=== PATIENT | female | born 1960 | race Caucasian/White ===

== ENCOUNTER → 2020-04-11 15:16 | Outpatient (CLI) | payer OTHER, SELFPAY ==
--- NOTE | ~2020-04-11 | XR_ITS ---
[id number] 04/11/2020 15:30 Indication: Radiculopathy Procedure: 5 views cervical spine Comparison: No prior studies for comparison. Findings: Vertebral body heights are maintained. No acute fracture or traumatic malalignment. There a re mild degenerative changes of multiple with mid cervical uncinate and facet joints. Lung apices are normal. Odontoid process within normal limits. No prevertebral soft tissue abnormality. Craniotomy d efect is partially visualized. Impression: 1: Mild cervical spondylosis Reviewed, dictated and finalized at location A. INAL OPERATIONS MANAGER Impression: 1: Mild cervical spondylosis
== END ==
PROVIDERS: PCP Physician Assistant; Visit Provider Physician Assistant
DX: M47.22 Other spondylosis with radiculopathy, cervical region (principal); R20.0 Anesthesia of skin; R20.2 Paresthesia of skin
CPT/HCPCS: 72040

== ENCOUNTER 2020-05-11 13:30 | Outpatient (RCR) | payer OTHER, SELFPAY ==
--- NOTE | 2020-04-20 14:56 | PTOPEVAL ---
PHYSICAL THERAPY EVALUATION AND PLAN OF CARE Thank you for referring Reva Leone to [facility].? The patient is scheduled to be seen for therapy? 1-2x/week for 3-5 weeks. Please review, sign, date and return this plan of care ALAINA. I agree with and certify that the following plan of care is medically necessary. Referring Physician Date Attending Provider: Donte Marvin PA-C Evaluation Outpatient Past Medical History Neurological History Hx Other Neurological Disorders Yes: angioma surgery Musculoskeletal History Hx Back Injury Yes: surgery on herniated discs Diagnosis right cervical radiculopathy Onset 4weeks Subjective Information Reports that 2-3 years ago she Query Text:As Reported By Patient/ had similar symptoms in her Family right shoulder. She reports an audible pop in her neck that is generally non-painful, but her greateset complaint is sypmtoms medial to right scapular border. It is not constant but it will hurt so bad and her will try to massage the spot and there is some relief. She has the pain in the shoulder blade region and sometimes it will radiate to shoulder and arm. When this started she describes a severe pain that even turned into numbness in the right arm. the last 5 days have been much better, but it is nothing like it was. She was prescribed prednisone pack that helped tremendously. Diagnostic Tests X-Rays For This Problem Yes: cervical OA Self Report Pain Assessment Right Shoulder(s) Reported Pain Level 3 Pain Description Aching,Numbness,Soreness Pain Frequency Acute,Continuous Lowest Pain Intensity 1 Greatest Pain Intensity 7 Other Pain Aggravating Factors nothing imparticular worsens symptoms; typically wakes with symptoms Interventions Used Interventions Used By Clinicians Exercise,Manual Therapy Techniques Pain Relief Interventions Used By Heat,Medication Patient Cervical and Lumbar ROM Cervical ROM Cervical Flexion (0-60) 40 Query Text:Active in Degrees Cervical Extension (0-70) 33 Quer
--- NOTE | 2020-06-08 15:50 | PTOPEVAL ---
PHYSICAL THERAPY DISCHARGE SUMMARY Thank you for referring Reva Leone to [facility].? Reva has been seen for the dx of cervical radiculopathy and has improved with goals partially met. Patient chooses to stop skilled PT at this time due to insurance/cost issues. Please review, sign, date and return this plan of care. I agree with and certify the following plan of care. Referring Physician Date Attending Provider: Donte Marvin PA-C *PT Outpatient Discharge Start: 04/20/20 12:32 Freq: Status: Active Protocol: Document 05/11/20 13:35 MLV (Rec: 05/11/20 14:25 MLV [id number]) Therapy Assessment Status Assessment Status Discharge Pain Assessment Timing of Pain Assessment Timing of Pain Assessment Assessment Pain Scale Pain Scale Used Numeric (1 - 10) Self Report Pain Assessment Right Shoulder(s) Reported Pain Level 4 Pain Description Aching Pain Frequency Intermittent Pain Score Pain Score 4: Self Report Interventions Used Interventions Used By Clinicians Education,Exercise,Heat, Traction Pain Relief Interventions Used By Exercise,Heat,Position Change Patient Cervical and Lumbar ROM Cervical ROM Cervical Flexion (0-60) 67 Query Text:Active in Degrees Cervical Extension (0-70) 48 Query Text:Active in Degrees Cervical Lateral Flexion Right (0-50) 43 Query Text:Active in Degrees Cervical Lateral Flexion Left (0-50) 32 Query Text:Active in Degrees Cervical Rotation Right (0-90) 75 Query Text:Active in Degrees Cervical Rotation Left (0-90) 65 Query Text:Active in Degrees Cervical ROM Comments AROM of cervical sidebend to the right creates increased symptoms to the right arm and hand Palpation Assessment Palpation Palpation right upper trap tightness improved but still present, affecting sidebend motion; muscle improves with STM PT Clinical Summary Reva has improved with a decrease in symptoms, decreased tightness, improved cervical motions and patient is I with HEP. The patient has a high cost copay and would like to hold therapy up to 2 weeks to see if she continues to improve without formal PT. PT agrees and plans to call the patient in 2 weeks to
== END 2020-07-04 09:31 | disposition home or self-care (01) ==
LOC: ANHPT 13:30
PROVIDERS: PCP Physician Assistant; Visit Provider Physician Assistant
DX: M54.12 Radiculopathy, cervical region (principal); R20.0 Anesthesia of skin; R20.2 Paresthesia of skin
CPT/HCPCS: 97012; 97014; 97110; 97140; 97162; G0283

== ENCOUNTER 2020-05-20 12:52 | Outpatient (CLI) | payer OTHER, SELFPAY | END 2020-05-20 12:53 | disposition home or self-care (01) | LOC: ANHAUDIO 12:54 | PROVIDERS: PCP Physician Assistant; Visit Provider Otolaryngology | DX: H90.3 Sensorineural hearing loss, bilateral (principal); H93.13 Tinnitus, bilateral; H81.10 Benign paroxysmal vertigo, unspecified ear | CPT/HCPCS: 92557; 92567 ==

== ENCOUNTER 2020-05-30 11:00 | Outpatient (RCR) | payer OTHER, SELFPAY ==
--- NOTE | 2020-05-23 11:55 | PTOPEVAL ---
PHYSICAL THERAPY EVALUATION AND PLAN OF CARE 05-23-20 Thank you for referring Reva Leone to [facility], for the diagnosis of vestibular rehab. Reva is scheduled to be seen for therapy? 1 x/week for 5 weeks. Please review, sign, date and return this plan of care ALAINA. I agree with and certify that the following plan of care is medically necessary. Referring Physician Date Attending Provider: Emile Leroy MD PT Outpatient Evaluation Document 05/23/20 10:30 JOSEPH (Rec: 05/23/20 11:55 JOSEPH [id number]) Therapy Assessment Status Assessment Status Assessment Status Evaluation Outpatient Past Medical History Past Medical History Source of Past Medical History Recalled from Previous Visit, Confirmed with Patient/Family Neurological History Hx Migraine Yes: at teenager, decreased, not had migraine for 10 yr; headache 1x/wk Hx Other Neurological Disorders Yes: meningioma removed 2009- benign Cardiovascular History Hx Cardiac Disorders No Significant History Respiratory History Hx Asthma Yes Hx Bronchitis Yes Hx Pneumonia Yes: past 4 springs- have pneumonia/bronchitis Gastrointestinal History Hx Gastrointestinal Disorders No Significant History Genitourinary History Hx Genitourinary Disorders No Significant History Musculoskeletal History Hx Back Injury Yes: surgery lumbar herniated discs x2 surgeries Hx Other Musculoskeletal Disorders Yes: R shoulder impingement/ cervical mild spondylosis xray Endocrine History Hx Endocrine Disorders No Significant History HEENT History Hx HEENT Disorders No Significant History Reproductive History Hx Section Yes Hx Hysterectomy Yes Evaluation Information Problem Diagnosis vertigo/ vestibular rehab Onset Jan 2020 Prior Level of Function Activity Level (Last 3 Months) 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 Home Meds Must
--- NOTE | 2020-06-02 15:46 | PCPTNOTE ---
PHYSICAL THERAPY DISCHARGE 06-02-20 Attending Provider: Emile Leroy MD Patient:Reva Leone Date of :1960 Mrs. Garcia has received the PT evaluation and one treatment session for the diagnosis of vertigo. She has been educated on a home exercise program and basic vestibular system information. Reva called today and is having issues with her insurance. She feels she is improving with her home exercises for eye tracking and stabilization, and does not want to come in for therapy any more due to cost. Discharge from PT services per pt request. The goals were not addressed. Thank you for referring Reva to [facility]. Please review, sign, date and return this discharge summary ALAINA. I have been updated about the patient's current status and I agree with discharge from the above service at this time. Referring Physician Date
== END 2020-06-03 07:43 | disposition home or self-care (01) ==
LOC: ANHPT 11:00
PROVIDERS: PCP Physician Assistant; Referring Provider Otolaryngology; Visit Provider Otolaryngology
DX: H90.3 Sensorineural hearing loss, bilateral (principal); H93.13 Tinnitus, bilateral; H81.10 Benign paroxysmal vertigo, unspecified ear
CPT/HCPCS: 97110; 97161

== ENCOUNTER 2020-06-21 15:46 | Outpatient (CLI) | payer OTHER, SELFPAY | END 2020-06-21 15:47 | disposition home or self-care (01) | LOC: ANHCOVIDVC 15:46 | PROVIDERS: PCP Physician Assistant | DX: Z23 Encounter for immunization (principal) | CPT/HCPCS: 0001A; 91300 ==

== ENCOUNTER 2020-07-12 16:00 | Outpatient (CLI) | payer OTHER, SELFPAY | END 2020-07-12 16:01 | disposition home or self-care (01) | LOC: ANHCOVIDVC 16:00 | PROVIDERS: PCP Physician Assistant | DX: Z23 Encounter for immunization (principal) | CPT/HCPCS: 0002A; 91300 ==

== ENCOUNTER → 2020-08-24 13:41 | Outpatient (CLI) | payer OTHER, SELFPAY ==
--- NOTE | ~2020-08-24 | MR_ITS ---
EXAMINATION: MR cervical spine wo con EXAM DATE: 08/24/2020 14:39 INDICATION: Neck pain, right shoulder pain. TECHNIQUE: Multi-sequential, multiplanar MR images of the cervical spine were obtained without contra st. Axial T2, axial T2 MERGE sequence. Sagittal T1, T2, T2 fat saturation images also obtained. Cor relation is made to cervical x-ray 04/11/2020. FINDINGS: There is mild to moderate loss of the disc height C4-C7. The vertebral bodies are aligned in the AP dimension. The spinal cord signal intensity and intrinsic morphology is normal. Cervicomedu llary junction is normal in appearance. There are no suspicious marrow signal abnormalities. Paraspin al soft tissue is unremarkable. Level by level evaluation: C2-C3: Disc does not extend beyond the endplate margin. Uncovertebral joint arthropathy: None. Facet joint arthropathy: Mild to moderate right, mild left. Neural foraminal stenosis: No stenosis. Central canal stenosis: No stenosis. C3-C4: There is a minimal diffuse disc bulge. Uncovertebral joint arthropathy: Mild bilateral. Facet joint arthropathy: Moderate bilateral. Neural foraminal stenosis: No stenosis. Central canal stenosis: No stenosis. C4-C5: There is a minimal diffuse disc bulge. Uncovertebral joint arthropathy: Mild to moderate bilateral. Facet joint arthropathy: Moderate bilateral. Neural foraminal stenosis: Mild right. Central canal stenosis: No stenosis. C5-C6: There is a mild diffuse disc bulge. Uncovertebral joint arthropathy: Moderate to severe left, moderate right. Facet joint arthropathy: Moderate bilateral. Neural foraminal stenosis: Mild bilateral. Central canal stenosis: Mild. C6-C7: There is a mild diffuse disc bulge. Uncovertebral joint arthropathy: Severe right, moderate left. Facet joint arthropathy: Mild bilateral. Neural foraminal stenosis: Moderate to severe right, mild to moderate left. Central canal stenosis: Mild. C7-T1: Disc does not extend beyond the endplate margin. Uncovertebral joint arthropathy: Mild left. Facet joint arthropathy: Minimal bilateral. Neural foraminal stenosis: No stenosis. Central canal stenosis: No stenosis. IMPRESSION: 1. C6-7 moderate to severe right neural foraminal stenosis. 2. Less spondylosis other levels. Reviewed, dictated and finalized at location B.
== END ==
PROVIDERS: PCP Physician Assistant; Visit Provider Nurse Practitioner Adult Health
DX: M47.23 Other spondylosis with radiculopathy, cervicothoracic region (principal); M48.03 Spinal stenosis, cervicothoracic region
CPT/HCPCS: 72141

== ENCOUNTER → 2021-07-06 10:41 | Outpatient (CLI) | payer OTHER, SELFPAY ==
--- NOTE | ~2021-07-06 | XR_ITS ---
XR chest 2V DATE: 07/06/2021 10:55 INDICATION: Asthma TECHNIQUE: 2 views COMPARISON: 11/02/2010 2 view chest FINDINGS: Normal heart size. No hilar or mediastinal enlargement. No pulmonary infiltrate or consolidation, pleural effusion or pulmonary vascular congestion or pneumo thorax. Included skeletal structures are unremarkable. IMPRESSION: No active cardiopulmonary disease Reviewed, dictated and finalized at location A.
== END ==
PROVIDERS: PCP Family Medicine; Visit Provider Physician Assistant Medical
DX: J45.909 Unspecified asthma, uncomplicated (principal)
CPT/HCPCS: 71046

== ENCOUNTER → 2022-10-03 14:55 | Outpatient (CLI) | payer OTHER, SELFPAY ==
--- NOTE | ~2022-10-03 | XR_ITS ---
Right foot Technique: AP, oblique, and lateral views were obtained. Clinical History: Injury Findings: No acute fracture or dislocation is seen. Osseous alignment is anatomic. Joint spaces are p reserved without erosive or degenerative change. There is focal soft tissue swelling of the dorsal as pect of the foot. Impression: No fracture or dislocation. Focal soft tissue swelling of the dorsal aspect of the foot. Reviewed, dictated and finalized at location M. Impression: No fracture or dislocation. Focal soft tissue swelling of the dorsal aspect of the foot.
== END ==
PROVIDERS: PCP Family Medicine; Visit Provider Physician Assistant Medical
DX: S99.921A Unspecified injury of right foot, initial encounter (principal); R22.41 Localized swelling, mass and lump, right lower limb; T14.90XA Injury, unspecified, initial encounter
CPT/HCPCS: 73630

== ENCOUNTER 2024-10-27 08:47 | Outpatient (CLI) | payer OTHER, SELFPAY ==
--- OUTSIDE RECORDS SUMMARY | 2009-12-15 19:00 | XMS_ITS | Continuity of Care Document ---
Author Organization [facility] Address [address] [facility] [address] [place] [address] Phone Care Team Providers Care Box Blank Machine Operator Name Role Phone Mejia OD, Korey Unavailable Unavailable Procedures Procedure Date Cntct Lens Hydrophil Bifocal Medical Tax Contact Lens Check Eye Exam & Treatment Refraction CL Replacement - Nolan Other 9 [employer] Medical No Charge Contact Lens Check Eye Exam & Treatment Refraction CL Replacement - Vistakon Disp W/BW Soft [employer] CL Replacement - Vistak[employer] Disp W/BW Soft [employer] Eye Exam & Treatment Refraction CL Replacement - Vist[employer] Disp W/BW Soft [employer] Advance Directives Directive Yes / No Effective Date File Name No Information Encounters Encounter Description Practice Location Reason(s) For Visit Diagnoses Date Provider Providers Copied on Encounter [facility], [address] [place] [address] [address], [place], [place], [address], [place] tel:[phone] [facility] No Information 8-201 0 Mejia OD Korey. [address], [place], [address], [place]. tel:[phone] [facility], [address], [place], [place], [address], [place] tel:[phone] [facility] No Information Sep-0 7-201 0 Mejia OD Korey. [address], [place], [place], [facility], [place]. tel:[phone] [facility], [address], [place], [place], [address], [place] tel:[phone] [facility] No Information Fredrick-1 4-201 0 Mejia OD Korey. [address], [place], [facility], [place]. tel:[phone] [facility], [address] [place] [address] [address], [place], [place], [address], [place] tel:[phone] [facility] No Information Sep-1 0-200 9 Mejia OD Korey. [address], [place], [facility], [place]. tel:[phone] [facility], [address] [place] [address] [address], [place], [place], [address], [place] tel:[phone] [facility] No Information Fredrick-0 1-200 9 Mejia OD Korey. [facility] [address] , [address], [place], [facility], [place]. tel:[phone] [facility], [address] [place] [address] [address], [place], [place], [address], [place] tel:[phone] [facility] No Information May-2 7-200 9 Mejia OD Korey. [facility] [address] , [address], [place], [facility], [place]. tel:[phone] [facility], [address], [place], [place], [address], [place] tel:[phone] [facility] No Information Dec-1 2-200 8 Mejia OD Korey. [address] [facility] , [address], [place], [address], [place]. tel:[phone] [facility], [address] [place] [address] [address], [place], [place], [address], tel:[phone] [facility] [place] No Information Mar-0 3-200 8 Mejia OD Korey. [address] [facility] , [address], [place], [facility], [place]. tel:[phone] [facility], [address] [place] [address] [address], [place], [place], [address], tel:[phone] [facility] [place] No Information Apr-1 3-200 8 Mejia OD Korey. [address] [facility] , [address], [place], [facility], [place]. tel:[phone] [facility], [address] [place] [address] [address], [place], [place], [address], [place] tel:[phone] [facility] No Information Flo-2 9-200 7 Mejia OD Korey. [facility] , [address], [place], [address], [place]. tel:[phone] Family History Family Member Type Diagnosis Age [...]
--- NOTE | ~2024-10-27 | MR_ITS ---
MRI of the brain Clinical History: Other postprocedural state Technique: Axial and sagittal T1-weighted images were acquired. These were followed by axial T2-weighted, diffusion weighted, gradient, and FLAIR images. Following intravenous administration of 16 cc MultiHance gadolinium, T1-weighted fat-sat imaging was performed in the axial, coronal, and sagittal planes. Findings: No acute infarct, intracranial hemorrhage or mass lesion seen. There are minimal chronic microvascular ischemic changes in the periventricular white matter. Probable focal chronic encephalomalacia in the posterior left frontal lobe. Ventricles and subarachnoid spaces are unremarkable. Orbits are unremarkable. Paranasal sinuses and mastoid air cells are essentially clear. Major intracranial flow voids appear intact. Sagittal midline structures are intact. No abnormal postcontrast enhancement identified. IMPRESSION: No acute infarct, intracranial hemorrhage or mass lesion. Minimal chronic microvascular ischemic changes. Probable focal chronic encephalomalacia in the posterior left frontal lobe. Reviewed, dictated and finalized at [facility]. IMPRESSION: No acute infarct, intracranial hemorrhage or mass lesion. Minimal chronic microvascular ischemic changes. Probable focal chronic encephal omalacia in the posterior left frontal lobe.
--- OUTSIDE RECORDS SUMMARY | 2024-10-27 09:10 | XMS_ITS | Clinical Summary ---
Author Organization [facility] Address [address] [address] Phone Care Team Providers Care Braiding Machine Tender Name Role Phone Ray Schwartz MD Primary Care Provider [phone] Medications polyethylene glycol (MIRALAX) Powder Mix the entire bottle with 64 oz of a clear liquid. Use as directed by the office for colonoscopy prep. 255 g 0 7 Active Social History Tobacco Use Types Packs/Day Years Used Date Smoking Tobacco: Never Assessed Comments Unknown Sex and Gender Information Value Date Recorded Sex Assigned at Not on file Legal Sex Female 9:39 PM CDT Gender Identity Not on file Sexual Orientation Not on file Plan of Treatment Health Maintenance Due Date Last Done Comments Hepatitis C Virus (HCV) Screening 1960 TdaP Immunization 1960 Pap Smear 1981 Cervical Cancer Screening (CCS) 1990 HPV/Cotest 1990 Cologuard 2005 Colonoscopy 2005 Colorectal Cancer Screening 2005 Immunochemical Fecal Occult Blood 2005 Pneumococcal Immunization (5 0+ years) (1 of 1 - PCV) 2010 Zoster Immunization (1 of 2) 2010 SARS-COV-2 Immunization ( - 2023-25 season) 2023 Influenza Immunization (#1) 2024 Respiratory Syncytial Virus (RSV) Immunization (Adult) (1 - 1-dose 75+ series) 09/14/2035 Hepatitis B Immunization Aged Out No longer eligible based on patient's age to complete this topic Human Papillomavirus (HPV) Immunization Aged Out No longer eligible b ased on patient's age to complete this topic Meningococcal Immunization (ACWY) Aged Out No longer eligible based on patient's age to complete this topic Rotavirus Immunization Aged Out No lo nger eligible based on patient's age to complete this topic Care Teams Braiding Machine Tender Relationship Specialty Start Date End Date Ray Schwartz MD [address] [place] [address] PCP - General Family Medicine 05/14/16
--- OUTSIDE RECORDS SUMMARY | 2024-10-27 09:10 | XMS_ITS | Clinical Summary ---
Author Organization [facility] Address [address] [place] [address] Care Team Providers Care Hurricane Tracker Name Role Phone Ray Schwartz MD Primary Care Provider [phone] Source Comments [facility],non-owned Affiliates and Associated Physician Practices is amultiple site organization consisting of ambulatory clinics and hospital sitesin [place], [place], [place] and [place]. This disclosure is being madepursuant to the Care Everywhere program and may not contain all information available regarding this patient. Last updated 17.[facility] Allergies Active Allergy Reactions Criticality Noted Date Comments Codeine Nausea and/or Vomiting 09/29/2009 DIZZY Darvon 09/29/2009 SYNCOPY Penicillins Rash 09/29/2009 Medications * Be aware that medications may not be up to date on this document. Alwaysverify current medications with the patient. naproxen sodium (ALEVE) 220 MG tablet as needed. Active Cholecalciferol (VITAMIN D) 2000 UNITS capsule Take 2,000 Units by mouth once daily Active meclizine (ANTIVERT) 25 MG tablet Take 25 mg by mouth 3 times daily as needed for Dizziness Active fluticasone-valeriy anterol (BREO ELLIPTA) 100-25 MCG/INH inhaler Inhale 1 puff by mouth once daily Administer at the same time each day. Rinse mouth after using Active albuterol HFA (VENTOLIN HFA) 8 gram inhaler Inhale 2 puffs by mouth every 6 hours as needed Active Fexofenadine HCl (AMANDA ALLERGY PO) Active Fluticasone Propionate (FLONASE NA) Active Active Problems Problem Noted Date Diagnosed Date Meningioma 10/17/2009 Skin cancer Complication of anesthesia Overview (04/13/2015): History of PONV Resolved Problems Problem Noted Date Diagnosed Date Resolved Date Benign neoplasm of cerebral meninges 10/06/2009 10/06/2009 Overview (10/06/2009): JOANNE CALLY CEREBR MENINGES Immunizations Immunization Administration Dates Next Due INFLUENZA VACCINE, QUADR. 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 Gender Identity Not on file Sexual Orientation Not on file 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 Not on file Not on file Last Filed Vital Signs Vital Sign Reading Time Taken Comments Blood Pressure 110/74 11/19/2018 6:59 PM CDT Pulse 87 11/19/2018 6:59 PM CDT Temperature 36.7 C (98 F) 11/19/2018 6:59 PM CDT Respiratory Rate 16 11/19/2018 6:59 PM CDT Oxygen Saturation 98% 11/19/2018 6:59 PM CDT Inhaled Oxygen Concentration - - Weight 72.6 kg (160 lb) 11/19/2018 6:59 PM CDT Height 162.6 cm (5' 4) 11/19/2018 6:59 PM CDT Body Mass Index 27.46 11/19/2018 6:59 PM CDT Plan of Treatment Health Maintenance Due Date Last Done Comments COLOGUARD (AGES 45-75) - COLON CA SCREENING 1960 COLON MONITORING 1960 COLONOSCOPY - COLON CA SCREENING 1960 CT COLONOGRAPHY - COLON CA SCREENING 1960 Colorectal Cancer Screening 1960 FIT - COLON CA SCREENING 1960 FLEX SIG - COLON CA SCREENING 1960 LIPID TESTING 1960 MAMMOGRAM 1960 HIV SCREENING 09/14/1975 HEPATITIS C SCREENING 09/09/1978 DTAP/TDAP/TD VACCINES (1 - Tdap) 09/14/1979 PNEUMOCOCCAL VACCINE 50+ (1 of 1 - PCV) 2010 ZOSTER VACCINE (1 of 2) 2010 SCREENING FOR DIABETES 11/19/2018 0, 10/05/2009, 10/04/2009, Additional history exists COVID-19 VACCINE ( - 2023- season) 2023 DEPRESSION SCREENING 03/11/2024 INFLUENZA VACCINE (#1) 2024 12/15/2016 Respiratory Syncytial Virus (RSV) Vaccine Pt: or over 60 yrs (1 - 1-dose 75+ series) 09/14/2035 HEPATITIS B VACCINE Aged Out No longe r eligible based on patient's age to complete this topic HIB VACCINE Aged Out No longer eligi ble based on patient's age to complete this topic HPV VACCINE Aged Out No longer eligi ble based on patient's age to complete this topic MENINGOCOCCAL (Group B) VACCINE SHARED DECISION-MAKING Aged Out No longer eligible based on patient's age to complete this topic MENINGOCOCCAL GROUPS A/C/Y/W VACCINE Aged Out No longer eligible based on patient's age to complete this topic Procedures Procedure Name Priority Date/Time Associated Diagnosis Comments GLUCOSE - POINT OF CARE Routine 10/06/2009 11:06 AM CDT Benign Neoplasm of Cerebral Meninges from Last 3 Months or Most Recently Relevant to Health Maintenance Results * GLUCOSE - POINT OF CARE (10/06/2009 11:06 AM CDT) Glucose WB/POC 94 70 - 110 mg/dl [facility] LABORATORY BLOOD SPECIMEN / Unknown 10/06/2009 11:06 AM CDT 10/07/2009 2:46 AM CDT Pedro Luis Roland MD LAB - POINT OF CARE ORDERABL ES Final Result [facility] [address] [place] [address] from Last 3 Months or Most Recently Relevant to Health Maintenance Insurance [facility] Advance Directives * Full Code (Latest Code Status on File) Date Activated Date Inactivated Comments 10/04/2009 1:15 PM 10/07/2009 3:21 AM Care Teams Hurricane Tracker Relationship Specialty Start Date End Date Ray Schwartz MD [address] [place] [address] PCP - General Family Medicine 07/20/13
== END 2024-10-27 08:48 | disposition home or self-care (01) ==
PROVIDERS: PCP Family Medicine; Visit Provider Student in an Organized Health Care Education/Training Program
DX: R42 Dizziness and giddiness (principal); Z98.890 Other specified postprocedural states; Z86.03 Personal history of neoplasm of uncertain behavior
CPT/HCPCS: 70553; A9577

== ENCOUNTER 2024-11-24 14:28 | Outpatient (CLI) | payer OTHER, SELFPAY ==
--- OUTSIDE RECORDS SUMMARY | 2009-12-15 19:00 | XMS_ITS | Continuity of Care Document ---
Author Organization [facility] Address [address] [facility] [address] [place] [address] Phone Care Team Providers Care Correspondence Clerk Name Role Phone Mejia OD, Korey Unavailable Unavailable Procedures Procedure Date Cntct Lens Hydrophil Bifocal Medical Tax Contact Lens Check Eye Exam & Treatment Refraction CL Replacement - Nolan Other 9 [employer] No Charge Contact Lens Check Eye Exam & Treatment Refraction CL Replacement - Vistakon Disp W/BW Soft [employer] CL Replacement - Vistakon Disp W/BW Soft [employer] Eye Exam & Treatment Refraction CL Replacement - Vistakon Disp W/BW Soft [employer] Advance Directives Directive Yes / No Effective Date File Name No Information Encounters Encounter Description Practice Location Reason(s) For Visit Diagnoses Date Provider Providers Copied on Encounter [facility], [address] [place] [address] [address], [place], [place], [id number], [place] tel:[phone] [facility] No Information 8-201 0 Mejia OD Korey. [address] , [address], [place], [address], [place]. tel:[phone] [facility], [address], [place], [place], [address], [place] tel:[phone] [facility] No Information Sep-0 7-201 0 Mejia OD Korey. [address] , [address], [place], [place], [facility], [place]. tel:[phone] [facility], [address], [place], [place], [address], [place] tel:[phone] [facility] No Information Fredrick-1 4-201 0 Mejia OD Korey. [address] , [address], [place], [place], [facility], [place]. tel:[phone] [facility], [address] [place] [address] [address], [place], [place], [address], [place] tel:[phone] [facility] No Information Sep-1 0-200 9 Mejia OD Korey. [address], [place], [facility], [place]. tel:[phone] [facility], [address] [place] [address] [address], [place], [place], [address], [place] tel:[phone] [facility] No Information Fredrick-0 1-200 9 Mejia OD Korey. [facility] [address] , [address], [place], [facility], [place]. tel:[phone] [facility], [address] [place] [address] [address], [place], [place], [address], [place] tel:[phone] [facility] No Information May-2 7-200 9 Mejia OD Korey. [facility] [address] , [address], [place], [facility], [place]. tel:[phone] [facility], [address], [place], [place], [address], [place] tel:[phone] [facility] No Information Dec-1 2-200 8 Mejia OD Korey. [address] [facility] , [address], [place], [address], [place]. tel:[phone] [facility], [address] [place] [address] [address], [place], [place], [address], tel:[phone] [facility] No Information Mar-0 3-200 8 Mejia OD Korey. [address] [facility] , [address], [place], [facility], [place]. tel:[phone] [facility], [address] [place] [address] [address], [place], [place], [address], tel:[phone] [facility] No Information Apr-1 3-200 8 Mejia OD Korey. [address] [facility] , [address], [place], [facility], [place]. tel:[phone] [facility], [address] [place] [address] [address], [place], [place], [address], [place] tel:[phone] [facility] No Information Flo-2 9-200 7 Mejia OD Korey. [facility] , [address], [place], [address], [place]. tel:[phone] Family History Family Member Type Diagnosis Age At Onset No Information Payers Payer name Insurance type Covered libertarian ID Authoriza tion(s) No Information Social History Type Description Quantity Date Captured Comments Sex Female Smoking Status No Information Chief Complaint And Reason For Visit No Information Reason For Referral Reason For Referral No Information History Of Present Illness Encounter Date Complaint History Of Prese nt Illness No Information Functional Status Date Functional Assessmen t No Information Instructions Date Instruction Additional Infor mation No Information Assessments Type Assessment Date No Information Patient Care Teams Name Effective Dates (start - stop) Status Members No Information
--- NOTE | 2024-11-24 14:35 | ECHO_ITS ---
Patient Info Name: Reva Leone Age: 64 years : 1960 Gender: Female Ht: 63 in Wt: 170 lbs BSA: 1.88 m2 HR: 69 bpm BP: 124 / 77 mmHg Technical Quality: Good Exam Date: 11/24/2024 3:08 PM Patient Status: O Admit Date: 11/24/2024 Exam Type: CA echo doppler color flow Complete two-dimensional, color flow and Doppler transthoracic echocardiogram is performed. Machine Bobbin Winder: Stephany Mcguire Attending Provider: Dianne Little Summary 1. Complete two-dimensional, color flow and Doppler transthoracic echocardiogram is performed. 2. Left ventricular chamber dimension is normal. 3. Left ventricular systolic function is normal, estimated at 60-65. 4. The left ventricular diastolic function is normal. 5. E/e' 8 is minimally elevated. 6. There is trace mitral valve regurgitation. 7. There is trace tricuspid valve regurgitation. 8. No pulmonary hypertension, estimated pulmonary arterial systolic pressure is 21 mmHg. 9. There is trace pulmonic regurgitation. Left Ventricle E/e' 8 is minimally elevated. Left ventricular chamber dimension is normal. Left ventricular systolic function is normal, estimated at 60-65. The left ventricular diastolic function is normal. Right Ventricle Right ventricular chamber dimension is normal. Right ventricular systolic function is normal. Left Atria Left atrial chamber dimension is normal. Right Atria Right atrial chamber dimension is normal. Aortic Valve The aortic valve is trileaflet. There is no aortic valve stenosis. There is no aortic valve regurgitation. Pulmonic Valve There is trace pulmonic regurgitation. Mitral Valve There is no mitral valve stenosis. There is trace mitral valve regurgitation. Tricuspid Valve There is trace tricuspid valve regurgitation. No pulmonary hypertension, estimated pulmonary arterial systolic pressure is 21 mmHg. Pericardium/Pleural There is no pericardial effusion. Inferior Vena Cava Normal inferior vena cava with >50% collapse upon inspiration consistent with normal right atrial pressure, 5 mmHg. Aorta The aortic root size at the sinus of Valsalva is normal. Left Ventricular Outflow Tract Name Value Normal LVOT 2D LVOT Diameter 1.8 cm LVOT Doppler LVOT Peak Velocity 109 cm/s LVOT Peak Gradient 5 mmHg LVOT Mean Gradient 2 mmHg LVOT VTI 21 cm LVOT VTI/AV VTI Ratio 0.8 LVOT Stroke Volume 55 ml LVOT CO 11.3 l/min LVOT CI 6.0 l/min/m2 Pulmonic Valve Name Value Normal PV Doppler PV Peak Velocity 80 cm/s PV Peak Gradient 3 mmHg Mitral Valve Name Value Normal MV Diastolic Function MV E Peak Velocity 74 cm/s MV A Peak Velocity 61 cm/s MV E/A 1.2 MV Decel Time (PW) 249 ms MV Annular TDI MV E/e' (Septal) 9.8 MV E/e' (Lateral) 7.5 MV E/e' (Average) 8.7 Tricuspid Valve Name Value Normal TV Regurgitation Doppler TR Peak Velocity 202 cm/s TR Peak Gradient 16 mmHg Estimated PAP/RSVP RA Pressure 5 mmHg <=5 PA Systolic Pressure 21 mmHg <36 RV Systolic Pressure 21 mmHg <36 TV Annular TDI TV Lateral Stephany s' Velocity 14.0 cm/s >=9.5 Aorta Name Value Normal Ascending Aorta Ao Root Diameter (MM) 2.9 cm Ao Root Diam Index (MM) 1.6 cm/m2 Aortic Valve Name Value Normal AV Doppler AV Peak Velocity 121 cm/s AV Peak Gradient 6 mmHg AV Mean Gradient 3 mmHg AV VTI 25 cm AV Area (Cont Eq VTI) 2.2 cm2 >=3.0 AV Area (Cont Eq Juarez) 2.4 cm2 AV DI (Juarze) 0.90 AV Regurgitation 2D LVOT Area 2.7 cm2 Ventricles Name Value Normal LV Dimensions 2D/MM IVS Diastolic Thickness (2D) 0.8 cm 0.6-1.0 LVID Diastole (2D) 4.4 cm 3.8-5.2 LVIW Diastolic Thickness (2D) 0.9 cm 0.6-0.9 LVID Systole (2D) 3.1 cm 2.2-3.5 LVOT Diameter 1.8 cm LV Mass (2D Cubed) 117.66 g 67.00-162.00 LV Mass Index (2D Cubed) 63 g/m2 43-95 Relative Wall Thickness (2D) 0.39 <=0.42 LV Fractional Shortening/Ejection Fraction 2D/MM LV Fractional Shortening (2D) 29 % 27-45 LV EF (2D Teichholz) 56 % LV Diastolic Volume (4C MOD) 79 ml LV EF (4C MOD) 71 % LV Diastolic Volume (2C MOD) 76 ml LV EF (2C MOD) 68 % LV Diastolic Volume (BP MOD) 78 ml 46-106 LV Diastolic Volume Index (BP MOD) 42 ml/m2 29-61 LV Systolic Volume (BP MOD) 24 ml 14-42 LV Systolic Volume Index (BP MOD) 13 ml/m2 8-24 LV EF (BP MOD) 70 % 54-74 LV Diastolic Length (4C) 7.4 cm LV Systolic Length (4C) 5.7 cm LV Stroke Volume (4C MOD) 56 ml RV Dimensions 2D/MM RVID Diastole (2D) 3.2 cm 2.1-3.5 Atria Name Value Normal LA Dimensions LA Volume (4C A-L) 45 ml LA Volume (BP A-L) 40 ml RA Dimensions RA Systolic Major Baldwin Length (4C) 4.3 cm 2.2-2.8 RA Area (4C) 13.7 cm2 <=18.0 Report Signatures
--- OUTSIDE RECORDS SUMMARY | 2024-11-24 16:06 | XMS_ITS | Clinical Summary ---
Author Organization [facility] Address [address] [place] [address] Care Team Providers Care Silver Service Waiter Name Role Phone Ray Schwartz MD Primary Care Provider [phone] Source Comments [facility],non-owned Affiliates and Associated Physician Practices is amultiple site organization consisting of ambulatory clinics and hospital sitesin [place] and [place]. This disclosure is being madepursuant to the Care Everywhere program and may not contain all information available regarding this patient. 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 [address] [place] [address] from Last 3 Months or Most Recently Relevant to Health Maintenance Insurance [facility] Advance Directives * Full Code (Latest Code Status on File) Date Activated Date Inactivated Comments 10/04/2009 1:15 PM 10/07/2009 3:21 AM Care Teams Silver Service Waiter Relationship Specialty Start Date End Date Ray Schwartz MD [address] [place] [address] PCP - General Family Medicine 07/20/13
--- OUTSIDE RECORDS SUMMARY | 2024-11-24 16:06 | XMS_ITS | Clinical Summary ---
Author Organization [facility] Address [address] [address] Phone Care Team Providers Care Community Health Specialist Name Role Phone Ray Schwartz MD Primary Care Provider [phone] Medications polyethylene glycol (MIRALAX) Powder Mix the [...] age to complete this topic Care Teams Community Health Specialist Relationship Specialty Start Date End Date Ray Schwartz MD [address] [place] [address] PCP - General Family Medicine 05/14/16
--- OUTSIDE RECORDS SUMMARY | 2024-11-24 16:06 | XMS_ITS | Clinical Summary ---
Author Organization [facility] Address [address] [place] [phone] Care Team Providers Care Composite Layup Worker Name Role Phone Genevieve Matos MD Primary Care Provider [phone] Encounters Date Type Department Care Team Description 10/31/2024 10:57 AM CDT - 10/31/2024 4:52 PM CDT Emergency [facility] Emergency Department [address] [place] [id number] Sindy Shay MD Chest pain, unspecified type (Primary Dx) Discharge Disposition: Discharge to home or self care from Last 3 Months Social History Tobacco Use Types Packs/Day Years Used Date Smoking Tobacco: Never Assessed Comments Unknown Sex and Gender Information Value Date Recorded Sex Assigned at Not on file 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 Gender Identity Not on file Sexual Orientation Not on file Last Filed Vital Signs Vital Sign Reading Time Taken Comments Blood Pressure 117/64 10/31/2024 3:15 PM CDT Pulse 71 10/31/2024 3:15 PM CDT Temperature 36.6 C (97.9 F) 10/31/2024 10:56 AM CDT Respiratory Rate 8 10/31/2024 3:15 PM CDT Oxygen Saturation 96% 10/31/2024 3:15 PM CDT Inhaled Oxygen Concentration - - Weight 77.1 kg (170 lb) 10/31/2024 10:57 AM CDT Height 160 cm (5' 3) 10/31/2024 10:57 AM CDT Body Mass Index 30.11 10/31/2024 10:57 AM CDT Plan of Treatment Health Maintenance Due Date Last Done Comments Breast Cancer Screening-Mammogram 1960 Cervical Cancer Screening 1960 Colon Cancer Screening-Colonoscopy 1960 Depression Screening 1960 Hepatitis C Screening 1960 Hepatitis B Screening 1978 Regular Well Visit/Exam 18-64 1978 Pneumococcal vaccine <65 (1 of 2 - PCV) 09/14/1979 Zoster Vaccine (1 of 2) 2010 DTaP/Tdap/Td Vaccine (2 - Td or Tdap) 04/05/2024 Covid-19 Vaccine (4 - season) 2024 02/25/2021, 07/12/2020, 06/21/2020 Influenza Vaccine (#1) 2024 12/15/2016 Procedures Procedure Name Priority Date/Time Associated Diagnosis Comments TROPONIN T HIGH-SENSITIVITY 4-HR Timed 10/31/2024 3:41 PM CDT D-DIMER, QUANTITATIVE STAT 10/31/2024 2:58 PM CDT TROPONIN T HIGH-SENSITIVITY 2-HOUR Timed 10/31/2024 1:22 PM CDT EGFR STAT 10/31/2024 11:29 AM CDT DIFFERENTIAL AUTO STAT 10/31/2024 11: 29 AM CDT TROPONIN T HIGH-SENSITIVITY SERIES (BASELINE, 2HR, 4HR, 6HR) STAT 10/31/2024 11:29 AM CDT COMPREHENSIVE METABOLIC PANEL STAT 10/31/2024 11:29 AM CDT CBC WITH AUTO DIFFERENTIAL STAT 10/31/2024 11:29 AM CDT XR CHEST 1 VIEW ED 10/31/2024 11:25 AM CDT ECG 12-LEAD STAT 10/31/2024 11:09 AM CDT from Last 3 Months Results * Troponin T high-sensitivity 4-hour (10/31/2024 3:41 PM CDT) Trop T hs 10 <=14 ng/L Comment: Interpretive Data For further hscTnT resources including the diagnostic algorithm and an aid in interpretation, copy and paste this link: https://nrl.testcatalog.org/show/hsTrop Current Interpretive Data last revised 2020. Trop T hs delta 2 ng/L [facility] Trop T hs interp Insignificant [facility] Blood 10/31/2024 3:41 PM CDT 10/31/2024 3:45 PM CDT Sindy Shay MD LAB BLOOD ORDERABLES Final Resu lt Performing Organization Address [facility] Co de Phone Number HARVEYCHANEL THOMAS [address] [place] [address] * D-dimer, quantitative (10/31/2024 2:58 PM CDT) D-Dimer 390 <=499 ng/mL FEU Comment: Interpretive data FDA approved the D-dimer, in conjunction with a low or moderate pretest probability score, to exclude venous thromboembolic events (VTE) (PE and DVT) in outpatients when the D-dimer result is < 500 ng/ml FEU. Evidence supports using an age-adjusted D-dimer cut-off for outpatients older than 50 (age x 10) to improve specificity without sacrificing sensitivity. Example: age 68, VTE cut-off 680 ng/ml FEU. References; Schouten HT et al. Brit Med J. 2013;346:f2492. Ana Laura et al. Annals Int Med. 2015;163:701-11. Current interpretive data was last revised on 2019. Blood 10/31/2024 2:58 PM CDT 10/31/2024 2:58 PM CDT Sindy Shay MD LAB BLOOD ORDERABLES Final Resu lt Performing Organization Address [facility]/ZIP Co de Phone Number JOHN WILLIAM [phone] [address] [facility] [place] [address] * Troponin T high-sensitivity 2-hour (10/31/2024 1:22 PM CDT) Trop T hs 9 <=14 ng/L Comment: Interpretive Data For further hscTnT resources including the diagnostic algorithm and an aid in interpretation, copy and paste this link: https://nrl.[employer].org/show/hsTrop Current Interpretive Data last revised 2020. Trop T hs delta 1 ng/L [facility] Trop T hs interp Insignificant [facility] Blood 10/31/2024 1:22 PM CDT 10/31/2024 1:22 PM CDT Sindy Shay MD LAB BLOOD ORDERABLES Final Resu lt Performing Organization Address City/[facility]/ZIP Co de Phone Number JOHN THOMAS [address] [place] [address] * Troponin T high-sensitivity series (baseline, 2hr, 4hr, 6hr) (10/31/2024 11:29 AM CDT) Trop T hs 8 <=14 ng/L Comment: Interpretive Data For further hscTnT resources including the diagnostic algorithm and an aid in interpretation, copy and paste this link: https://nrl.[employer].org/show/hsTrop Current Interpretive Data last revised 2020. Blood 10/31/2024 11:2 9 AM CDT 10/31/2024 11:29 AM CDT Sindy Shay MD LAB BLOOD ORDERABLES Final Resu lt JOHN THOMAS [address] [place] [address] * eGFR (10/31/2024 11:29 AM CDT) eGFR 72 >=60 mL/min/1. 73 m2 Comment: Interpretive Data Reference Interval Normal >/= 90 mL/min/1.73m2 Mildly decreased* 60 - 89 mL/min/1.73m2 Mildly to moderately decreased 45 - 59 mL/min/1.73m2 Moderately to severely decreased 30 - 44 mL/min/1.73m2 Severely decreased 15 - 29 mL/min/1.73m2 Kidney Failure < 15 mL/min/1.73m2 *Relative to young adult level Estimated glomerular filtration rate is determined by the 2020 CKD-EPI equation recommended by the National Kidney Foundation (A Unifying Approach to GFR Estimation: Recommendations of the NKF-ASK Task Force on Reassessing the Inclusion of Race in Diagnosing Kidney Disease, JASN 2020). The CKD-EPI equation should not be used for patients with unstable renal function and has not been validated in children and those over 70. Current interpretive data was last reviewed 2021. Blood 10/31/2024 11:2 9 AM CDT 10/31/2024 11:29 AM CDT us Sindy Shay MD LAB BLOOD ORDERABLES Final Resu lt [facility] [address] [facility] [place] [address] * Differential, auto (10/31/2024 11:29 AM CDT) Neutrophil abs 4.33 1.50 - 6.50 K/cumm Imm gran abs 0.06 0.00 - 0.10 K/cumm [facility] Lymphocyte abs 1.88 0.80 - 3.30 K/cumm [facility] Monocyte abs 0.69 0.20 - 0.80 K/cumm [facility] Eosinophil abs 0.23 0.00 - 0.50 K/cumm [facility] Basophil abs 0.09 0.00 - 0.10 K/cumm [facility] Neutrophil pct 59.5 % [facility] Comment: Interpretive Data Percent cell count reference ranges are not reported, since discordance with absolute values may lead to misinterpretation of CBC data. Current Interpretive Data was last revised on 2017. Imm gran pct 0.8 % [facility] Comment: Interpretive Data Percent cell count reference ranges are not reported, since discordance with absolute values may lead to misinterpretation of CBC data. Current Interpretive Data was last revised on 2017. Lymphocyte pct 25.8 % [facility] Comment: Interpretive Data Percent cell count reference ranges are not reported, since discordance with absolute values may lead to misinterpretation of CBC data. Current Interpretive Data was last revised on 2017. Monocyte pct 9.5 % [facility] Comment: Interpretive Data Percent cell count reference ranges are not reported, since discordance with absolute values may lead to misinterpretation of CBC data. Current Interpretive Data was last revised on 2017. Eosinophil pct 3.2 % [facility] Comment: Interpretive Data Percent cell count reference ranges are not reported, since discordance with absolute values may lead to misinterpretation of CBC data. Current Interpretive Data was last revised on 2017. Basophil pct 1.2 % [facility] Comment: Interpretive Data Percent cell count reference ranges are not reported, since discordance with absolute values may lead to misinterpretation of CBC data. Current Interpretive Data was last revised on 2017. Blood 10/31/2024 11:2 9 AM CDT 10/31/2024 11:29 AM CDT us Sindy Shay MD LAB BLOOD ORDERABLES Final Resu lt [facility] [address] Department [place] [address] * CBC with auto differential (10/31/2024 11:29 AM CDT) WBC 7.28 3.80 - 9.90 K/cumm Hgb 14.4 11.9 - 15.5 g/dL [facility] Hct 44.0 35.6 - 45.5 % [facility] Plt 216 150 - 400 K/cumm [facility] MPV 10.3 9.1 - 12.3 fL [facility] RBC 4.85 3.90 - 5.20 M/cumm [facility] MCV 90.7 81.3 - 96.4 fL [facility] MCH 29.7 27.1 - 33.3 pg [facility] MCHC 32.7 32.3 - 35.7 g/dL [facility] RDW CV 12.8 11.1 - 14.9 % [facility] RDW SD 42.5 35.7 - 48.1 fL [facility] NRBC abs 0.00 0.00 - 0.01 K/cumm [facility] Blood Venous blood specimen / Unknown 10/31/2024 11:29 AM CDT 10/31/2024 11:29 AM CDT us Sindy Shay MD LAB BLOOD ORDERABLES Final Resu lt [facility] [id number] Department [place] [address] * Comprehensive metabolic panel (10/31/2024 11:29 AM CDT) Sodium 139 135 - 145 mmol/L Potassium, pl 4.1 3.3 - 4.9 mmol/L [facility] Chloride 104 97 - 110 mmol/L [facility] CO2 24 22 - 32 mmol/L [facility] Anion gap 11 2 - 15 mmol/L [facility] BUN 10 6 - 25 mg/dL [facility] Creatinine 0.89 0.60 - 1.10 mg/dL [facility] Glucose 101 70 - 199 mg/dL [facility] Comment: Interpretive Data Fasting glucose >/= 126 mg/dl is diagnostic for diabetes. Fasting is defined as no caloric intake for at least 8 hours. Fasting glucose between 100 mg/dl to 125 mg/dl is diagnostic of prediabetes. In a patient with classic symptoms of hyperglycemia or hyperglycemic crisis, a random glucose >/= 200 mg/dl is diagnostic for diabetes. In the absence of unequivocal hyperglycemia, results should be confirmed by repeat testing. The classification and Diagnosis of Diabetes Diabetes Care 202; 46: S19-S40. Current interpretive data was last revised 2022. Calcium 9.9 8.5 - 10.3 mg/dL [facility] Bilirubin, total 0.6 0.1 - 1.2 mg/dL [facility] Protein, pl 6.8 6.5 - 8.5 g/dL [facility] Albumin 4.0 3.5 - 5.0 g/dL [facility] Alk phos 113 40 - 130 Units/L [facility] ALT 29 7 - 45 Units/L [facility] AST 29 10 - 45 Units/L [facility] Blood 10/31/2024 11:2 9 AM CDT 10/31/2024 11:29 AM CDT Sindy Shay MD LAB BLOOD ORDERABLES Final Resu lt [facility] [address] [facility] [place] [address] * XR Chest 1 Vw Portable (If patient hemodynamically UNstable or UNable to ambulate) (10/31/2024 11:25 AM CDT) Anatomical Region Laterality Modality Body, Chest N/A Computed Radiogr aphy 10/31/2024 11:3 2 AM CDT Impressions 10/31/2024 11:32 AM CDT No acute cardiopulmonary findings. Electronically signed by: Eusebio Chung II, D.O. Narrative 10/31/2024 11:32 AM CDT Examination: XR CHEST 1 VIEW Date: 10/31/2024 11:15 AM History: chest pain Comparison: None. Findings: No pneumothorax, pleural effusion, or consolidation. The cardiomediastinal silhouette is within normal limits. No acute osseous abnormality. Procedure Note Eusebio Chung II, DO - 10/31/2024 Examination: XR CHEST 1 VIEW Date: 10/31/2024 11:15 AM History: chest pain Comparison: None. Findings: No pneumothorax, pleural effusion, or consolidation. The cardiomediastinal silhouette is within normal limits. No acute osseous abnormality. IMPRESSION: No acute cardiopulmonary findings. Electronically signed by: Eusebio Chung II, D.O. us Sindy Shay MD IMG XR PROCEDURES Final Result * ECG 12 lead (10/31/2024 11:09 AM CDT) 10/31/2024 11:0 9 AM CDT Narrative [facility] - 10/31/2024 1:18 PM CDT Vent Rate: 70 bpm RR Interval: 855 msec GA Interval: 162 msec QRS Duration: 105 msec QT Interval: 400 msec QTC Interval: 420 msec P-R-T [place]: 53 - 23 - 50 degrees IMPRESSION: SINUS RHYTHM NORMAL ECG Electronically Signed By: Rivera Conrad MD us Sindy Shay MD ECG ORDERABLES Final Result [facility] from Last 3 Months Insurance CIGNA CIGNA Care Teams Composite Layup Worker Relationship Specialty Start Date End Date Genevieve Matos MD [address] [facility] [address] PCP - General Family Medicine 10/31/24
== END 2024-11-24 14:29 | disposition home or self-care (01) ==
LOC: ANHCARD 14:30
PROVIDERS: PCP Family Medicine; Visit Provider Student in an Organized Health Care Education/Training Program
DX: R07.9 Chest pain, unspecified (principal); I51.7 Cardiomegaly
CPT/HCPCS: 93306

== ENCOUNTER 2024-12-03 09:29 | Outpatient (CLI) | payer OTHER, SELFPAY ==
--- OUTSIDE RECORDS SUMMARY | 2009-12-15 19:00 | XMS_ITS | Continuity of Care Document ---
Author Organization [facility] Address [address] [facility] [address] [place] [address] Phone Care Team Providers Care Crisis Nurse Name Role Phone Mejia OD, Korey Unavailable Unavailable Procedures Procedure Date Cntct Lens Hydrophil Bifocal Medical Tax Contact Lens Check Eye Exam & Treatment Refraction CL Replacement - Nolan Other 9 [employer] No Charge Contact Lens Check Eye Exam & Treatment Refraction CL Replacement - Vist[employer] Disp W/BW Soft [employer] Medical CL Replacement - Vistak[employer] Disp W/BW Soft [employer] Eye Exam & Treatment Refraction CL Replacement - Vistak[employer] Disp W/BW Soft burrp! Medical Advance Directives Directive Yes / No Effective Date File Name No Information Encounters Encounter Description Practice Location Reason(s) For Visit Diagnoses Date Provider Providers Copied on Encounter [facility], [address] [place] [address] [address], [place], [place], [address], [place] tel:[phone] [facility] No Information 8-201 0 Mejia OD Korey. [address] , [address], [place], [address], [place]. tel:[phone] [facility], [address], [place], [place], [address], [place] tel:[phone] [facility] No Information Sep-0 7-201 0 Mejia OD Korey. [address] , [address], [place], [place], [facility], [place]. tel:[phone] [facility], [address], [place], [place], [address], [place] tel:[phone] [facility] No Information Fredrick-1 4-201 0 Mejia OD Korey. [address], [place], [facility], [place]. tel:[phone] [facility], [address] [place] [address] [address], [place], [place], [address], [place] tel:[phone] [facility] No Information Sep-1 0-200 9 Mejia OD Korey. [address], [place], [facility], [place]. tel:[phone] [facility], [address] [place] [address] [address], [place], [place], [address], [place] tel:[phone] [facility] No Information Fredrick-0 1-200 9 Mejia OD Korey. [facility] [address] , [address], [place], [facility], [place]. tel:[phone] [facility], [address] [place] [address] [address], [place], [place], [address], [place] tel:[phone] [facility] No Information May-2 7-200 9 Mejia OD Korey. [facility] [address] , [address], [place], [facility], [place]. tel:[phone] [facility], [address], [place], [place], [address], [place] tel:[phone] [facility] No Information Dec-1 2-200 8 Mejia OD Korey. [address] [facility] , [address], [place], [address], [place]. tel:[phone] [facility], [address] [place] [address] [address], [place], [place], [address], tel:[phone] [facility] [place] No Information Mar-0 3-200 8 Mejia OD Korey. [address] [facility] , [address], [place], [facility], [place]. tel:[phone] [facility], [address] [place] [address] [address], [place], [place], [address], tel:[phone] [facility] [place] No Information Apr-1 3-200 8 Mejia OD Korey. [address] [facility] , [address], [place], [facility], [place]. tel:[phone] [facility], [address] [place] [address] [address], [place], [place], [address], [place] tel:[phone] [facility] No Information Flo-2 9-200 7 Mejia OD Korey. [facility] , [address], [place], [address], [place]. tel:[phone] Family History Family Member Type Diagnosis Age At Onset No Information Payers Payer name Insurance type Covered republican ID Authoriza tion(s) No Information Social History [...]
--- NOTE | ~2024-12-03 | NM_ITS ---
EXAMINATION: NM stress w perf spect multi DATE: 12/03/2024 12:55 CDT INDICATION: Chest pain TECHNIQUE: Rest images were obtained following intravenous administration of 10.8 mCi Tc99m tetrofosmin (Myoview). The patient was infused intravenously with Lexiscan (regadenoson). Then, 34.3 mCi Tc99m tetrofosmin (Myoview) was administered intravenously, and stress images were obtained. Data was ayah nstructed into short axis and horizontal and vertical long axis SPECT images. Gated SPECT images were also obtained. COMPARISON: None. FINDINGS: There is no definite reversible or fixed perfusion abnormality to suggest ischemia or infarction. There is no segmental wall motion abnormality. Left ventricular ejection fraction measures 72%. IMPRESSION: 1. No definite ischemia or infarct. 2. Normal left ventricular ejection fraction measuring 72%. Reviewed, dictated and finalized at location O.
--- NOTE | 2024-12-03 09:56 | EST_ITS ---
Patient Info Name: Reva Leone Age: 64 years : 1960 Gender: Female Ht: 63 in Wt: 170 lbs BSA: 1.88 m2 Exam Date: 12/03/2024 9:56 AM Patient Status: O Admit Date: 12/03/2024 Exam Type: CA stress test treadmill w NM A nuclear stress test was performed. Staff Referring Physician: Genevieve Matos Attending Provider: Genevieve Matos Exercise Technologist: Karlee French Exercise Physician: Jackson Eng DO Summary 1. 1. Negative Levi exercise stress test for ischemic ST changes by ECG criteria. 2. 2. Reduced functional capacity, achieving 7 METs of workload. 3. 3. Baseline hypertension. 4. 4. Appropriate HR response to exercise. 5. 5. Appropriate HR recovery at 1 minute post exercise. 6. 6. Nuclear scan to follow and will be reported separately. Please correlate with it. 7. 7. Patient informed of the above results. Protocol: Levi Stress ECG Details Stage: REST Duration (min): 1 min : 51 sec Speed (mph): 0.0 Grade (%): 0 HR (bpm): 69 SBP (mmHg): 158 DBP (mmHg): 86 METS: --- Stage: REST Duration (min): 5 min : 11 sec Speed (mph): 0.0 Grade (%): 0 HR (bpm): 74 SBP (mmHg): 158 DBP (mmHg): 86 METS: --- Stage: STAGE 1 Duration (min): 1 min : 0 sec Speed (mph): 1.7 Grade (%): 10 HR (bpm): 98 SBP (mmHg): 158 DBP (mmHg): 86 METS: --- Stage: STAGE 1 Duration (min): 2 min : 0 sec Speed (mph): 1.7 Grade (%): 10 HR (bpm): 112 SBP (mmHg): 158 DBP (mmHg): 86 METS: --- Stage: STAGE 1 Duration (min): 3 min : 0 sec Speed (mph): 1.7 Grade (%): 10 HR (bpm): 121 SBP (mmHg): 185 DBP (mmHg): 78 METS: --- Stage: STAGE 2 Duration (min): 1 min : 0 sec Speed (mph): 2.5 Grade (%): 12 HR (bpm): 130 SBP (mmHg): 185 DBP (mmHg): 78 METS: --- Stage: STAGE 2 Duration (min): 2 min : 0 sec Speed (mph): 2.5 Grade (%): 12 HR (bpm): 137 SBP (mmHg): 188 DBP (mmHg): 73 METS: --- Stage: STAGE 2 Duration (min): 2 min : 25 sec Speed (mph): 2.5 Grade (%): 12 HR (bpm): 140 SBP (mmHg): 188 DBP (mmHg): 73 METS: --- Stage: RECOVERY Duration (min): 0 min : 34 sec Speed (mph): 0.0 Grade (%): 0 HR (bpm): 131 SBP (mmHg): 188 DBP (mmHg): 73 METS: --- Stage: RECOVERY Duration (min): 1 min : 34 sec Speed (mph): 0.0 Grade (%): 0 HR (bpm): 108 SBP (mmHg): 203 DBP (mmHg): 76 METS: --- Stage: RECOVERY Duration (min): 2 min : 34 sec Speed (mph): 0.0 Grade (%): 0 HR (bpm): 88 SBP (mmHg): 203 DBP (mmHg): 76 METS: --- Stage: RECOVERY Duration (min): 3 min : 34 sec Speed (mph): 0.0 Grade (%): 0 HR (bpm): 85 SBP (mmHg): 203 DBP (mmHg): 76 METS: --- Stage: RECOVERY Duration (min): 3 min : 57 sec Speed (mph): 0.0 Grade (%): 0 HR (bpm): 84 SBP (mmHg): 152 DBP (mmHg): 75 METS: --- Rest HR: 74 bpm Peak HR: 140 bpm Rest Sys BP: 158 mmHg Peak Sys BP: 203 mmHg Max Pred HR: 156 bpm % Max Pred HR: 90 % Target HR: 133 bpm Max RPP: 28,420 bpm*mmHg Faust Score: 1 Termination Reason: Reached target heart rate or workload Cardiac Symptoms: Shortness of breath Max ST Seg Deviation: -0.90 mm Total Time: 5 min : 25 sec Rest Gallardo BP: 86 mmHg Peak Gallardo BP: 76 mmHg Angina Score: None Total METS: 7.1 Resting ECG Sinus rhythm. Stress ECG No ST changes. Arrhythmias None. Report Signatures
--- OUTSIDE RECORDS SUMMARY | 2024-12-03 10:19 | XMS_ITS | Clinical Summary ---
Author Organization [facility] Address [address] [address] Phone Care Team Providers Care Security Systems Integrator Name Role Phone Ray Schwartz MD Primary Care Provider [phone] Medications polyethylene glycol (MIRALAX) Powder Mix the [...] age to complete this topic Care Teams Security Systems Integrator Relationship Specialty Start Date End Date Ray Schwartz MD [address] [place] [address] PCP - General Family Medicine 05/14/16
--- OUTSIDE RECORDS SUMMARY | 2024-12-03 10:19 | XMS_ITS | Clinical Summary ---
Author Organization [facility] Address [address] [place] [address] Care Team Providers Care Dean Of Faculty Name Role Phone Ray Schwartz MD Primary Care Provider [phone] Source Comments [facility],non-owned Affiliates and Associated Physician Practices is amultiple site organization consisting of ambulatory clinics and hospital sitesin [place], [place], [place] and [place]. This disclosure is being madepursuant to the Care Everywhere program and may not contain all information available regarding this patient. 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 Gender Identity Not on file Sexual Orientation Not on file Occupation Industry Job Start Date Job End Date [employer] Not on file Not on file Not [...] POINT OF CARE ORDERABL ES Final Result [facility] [address] [place] [address] from Last 3 Months or Most Recently Relevant to Health Maintenance Insurance [facility] Advance Directives * Full Code (Latest Code Status on File) Date Activated Date Inactivated Comments 10/04/2009 1:15 PM 10/07/2009 3:21 AM Care Teams Dean Of Faculty Relationship Specialty Start Date End Date Ray Schwartz MD [address] [place] [address] PCP - General Family Medicine 07/20/13
--- OUTSIDE RECORDS SUMMARY | 2024-12-03 10:19 | XMS_ITS | Clinical Summary ---
Author Organization [facility] Address [address] [place] [address] Care Team Providers Care Guest Service Supervisor Name Role Phone Genevieve Matos MD Primary Care Provider [phone] Encounters Date Type Department Care Team Description 10/31/2024 10:57 AM CDT - 10/31/2024 4:52 PM CDT Emergency [facility] Emergency Department [address] [place] [address] Sindy Shay MD Chest pain, unspecified type (Primary Dx) Discharge Disposition: Discharge to home or self care from Last 3 Months Social History Tobacco Use Types Packs/Day Years Used Date Smoking Tobacco: Never Assessed Comments Unknown Sex and Gender Information Value Date Recorded Sex Assigned at Not on file 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 Trop T hs delta 2 ng/L [facility] Trop T hs interp Insignificant [facility] Blood 10/31/2024 3:41 PM CDT 10/31/2024 3:45 PM CDT Sindy Shay MD LAB BLOOD ORDERABLES Final Resu lt Performing Organization Address [facility] Co de Phone Number HARVEYCHANEL THOMAS [address] [place] [address] * D-dimer, quantitative (10/31/2024 2:58 PM CDT) [...] ORDERABLES Final Resu lt Performing Organization Address [facility]/ZIP Co de Phone Number JOHN WILLIAM [address] [facility] [place] [address] * Troponin T high-sensitivity 2-hour (10/31/2024 1:22 PM CDT) Trop T hs 9 <=14 ng/L Comment: Interpretive Data For further hscTnT resources including the diagnostic algorithm and an aid in interpretation, copy and paste this link: [email or web address]/show/[email or web address] Current Interpretive Data last revised 2020. Trop T hs delta 1 ng/L [facility] Trop T hs interp Insignificant [facility] Blood 10/31/2024 1:22 PM CDT 10/31/2024 1:22 PM CDT Sindy Shay MD LAB BLOOD ORDERABLES Final Resu lt Performing Organization Address City/[facility]/ZIP Co de Phone Number JOHN THOMAS [address] [place] [address] * Troponin T high-sensitivity series (baseline, 2hr, 4hr, 6hr) (10/31/2024 11:29 AM CDT) Trop T hs 8 <=14 ng/L Comment: Interpretive Data For further hscTnT resources including the diagnostic algorithm and an aid in interpretation, copy and paste this link: [email or web address]/show/[email or web address] Current Interpretive Data last revised 2020. Blood 10/31/2024 11:2 9 AM CDT 10/31/2024 11:29 AM CDT Sindy Shay MD LAB BLOOD ORDERABLES Final Resu lt JOHN THOMAS [address] [place] [address] * eGFR (10/31/2024 11:29 AM CDT) eGFR [...] MD LAB BLOOD ORDERABLES Final Resu lt [facility] [address] [place] [address] * Differential, auto (10/31/2024 11:29 AM CDT) Neutrophil abs 4.33 1.50 - 6.50 K/cumm Imm gran abs 0.06 0.00 - 0.10 K/cumm [facility] Lymphocyte abs 1.88 0.80 - 3.30 K/cumm [facility] Monocyte abs 0.69 0.20 - 0.80 K/cumm [facility] Eosinophil abs 0.23 0.00 - 0.50 K/cumm [facility] Basophil abs 0.09 0.00 - 0.10 K/cumm [facility] Neutrophil pct 59.5 % [facility] Comment: Interpretive Data Percent cell count reference ranges are not reported, since discordance with absolute values may lead to misinterpretation of CBC data. Current Interpretive Data was last revised on 2017. Imm gran pct 0.8 % [facility] Comment: Interpretive Data Percent cell count [...] MD LAB BLOOD ORDERABLES Final Resu lt [facility] [address] [place] [address] * CBC with auto differential (10/31/2024 11:29 AM CDT) WBC 7.28 3.80 - 9.90 K/cumm Hgb 14.4 11.9 - 15.5 g/dL [facility] Hct 44.0 35.6 - 45.5 % [facility] Plt 216 150 - 400 K/cumm [facility] MPV 10.3 9.1 - 12.3 fL [facility] RBC 4.85 3.90 - 5.20 M/cumm [facility] MCV 90.7 81.3 - 96.4 fL [facility] MCH 29.7 27.1 - 33.3 pg [...] LAB BLOOD ORDERABLES Final Resu lt CERN[facility] [address] [place] [address] * Comprehensive metabolic panel (10/31/2024 [...] BLOOD ORDERABLES Final Resu lt JOHN THOMAS [address] [place] [address] * XR Chest 1 Vw Portable (If [...] CDT) 10/31/2024 11:0 9 AM CDT Narrative [facility] - 10/31/2024 1:18 PM CDT Vent Rate: 70 bpm RR Interval: 855 msec SD Interval: 162 msec QRS Duration: 105 msec QT Interval: 400 msec QTC Interval: 420 msec P-R-T [place]: 53 - 23 - 50 degrees IMPRESSION: SINUS RHYTHM NORMAL ECG Electronically Signed By: Rivera Conrad MD us Sindy Shay MD ECG ORDERABLES Final Result [facility] from Last 3 Months Insurance CIG[employer] CIGNA Care Teams Guest Service Supervisor Relationship Specialty Start Date End Date Genevieve Matos MD [address] [facility] [address] B [address] [address] PCP - General Family Medicine 10/31/24
== END 2024-12-03 09:30 | disposition home or self-care (01) ==
PROVIDERS: PCP Family Medicine; Visit Provider Family Medicine
DX: R07.9 Chest pain, unspecified (principal); Z82.49 Family history of ischemic heart disease and other diseases of the circulatory system; Z01.818 Encounter for other preprocedural examination
CPT/HCPCS: 78452; 93017; A9502

== ENCOUNTER 2024-12-13 16:27 | Emergency (ER) | payer OTHER, SELFPAY ==
[2024-12-13 16:46] VITALS: BP 147/86; PULSE 82; RESP 16; TEMP 36.6; O2SAT 100
--- NOTE | 2024-12-13 17:13 | ED.EYEPROB ---
HPI - Eye Problem General Chief complaint: Eye Problems Stated complaint: EYE IRRITATION/FACIAL PAIN Time Seen by Provider: 12/13/24 17:13 Source: patient Mode of arrival: ambulatory Limitations: no limitations History of Present Illness HPI Narrative: 64-year-old female presented for complaint of left eye redness and pain. Onset yesterday. States she had been working out in the yard and felt some irritation like she had dirt in the eyes. She used Refresh eye drops. Last night when removing the left contact lens, she felt a sharp pain and thought she scratched her eye. Says this pain persisted throughout the night. Today she woke with redness, light sensitivity, and frequent tearing. Then developed headache and right eye pain. Continues to endorse 'sandpaper sensation.' Used Pataday drops today and cool compresses. Pt admits to wearing contacts longer than recommended as well as sleeping in them. Denies n/v/d/f/c. Hx shingles on face. chief complaint: eye pain Related Data Home Medications ?Medication ?Instructions ?Recorded ?Confirmed ?Last Taken ?Type cholecalciferol (vitamin D3) 50 50 mcg PO DAILY 04/11/20 11/12/24 11/12/24 History mcg (2,000 unit) capsule fexofenadine 30 mg tablet 60 mg PO DAILY 04/11/20 11/12/24 11/12/24 History fluticasone propionate 50 1 spray intranasal DAILY 05/11/20 11/12/24 11/12/24 History mcg/actuation nasal spray,suspension meclizine 12.5 mg tablet 12.5 mg PO BID 05/11/20 11/12/24 Unknown History Allergies Allergy/AdvReac Type Severity Reaction Status Date / Time Penicillins Allergy Unknown Unknown Verified 12/13/24 16:43 propoxyphene Allergy Unknown UNKNOWN Verified 12/10/24 14:18 hydrocodone AdvReac Unknown Nausea and Verified 12/10/24 14:18 Vomiting Review of Systems Review of Systems: CONSTITUTIONAL: Denies body aches, fever, chills EYES:Endorses redness and pain to left eye with FB sensation, photophobia Denies visual changes ENT: Denies rhinorrhea, congestion, sore throat, or otalgia. CARDIOVASCULAR: Denies chest pain, palpitations RESPIRATORY: Denies cough or dyspnea. SKIN: Denies rash NEUROLOGIC: reports headache, Denies numbness, tingling, or weakness. All systems reviewed & are unremarkable except as noted in HPI and below PMFSH Past Medical History Medical History Cervical stenosis of spinal canal Spinal stenosis Memory deficit Hoarseness Meningioma Vitamin D deficiency Concussion Cancer of the skin, basal cell Sleep apnea Tinnitus Asthma Surgical History Surgical History History of delivery 1979 and 1981 H/O: hysterectomy 2015 H/O brain surgery meningioma removed 2009 History of microdiscectomy (~04/2003) L5-S1 H/O basal cell carcinoma excision (~05/11/14) left upper back Family History Family History Father Family history of premature coronary heart disease Family history of glaucoma Family history of cardiovascular disease Family history of cardiac disorder Family history of dementia Family history of coronary artery disease Alzheimer's dementia Mother Hypertension Carcinoma of colon Social History Social History Smoking status: Never smoker Second hand tobacco smoke exposure: No Alcohol intake: current Alcohol use details: occasionally Substance use: never Substance use type: does not use Lack of Transportation: No Lack of Food: Never True Current Housing: I Have Housing Concerned About Future Housing: No Difficulty Paying Gas/Electric Bills: No Difficulty Paying for Meds: No Currently Unemployed: No Difficulty w/ Childcare or Family Care: No Living arrangements: with family Occupation/Education: occupation Gender identity (if verbalized by the patient): Female Spiritual care concerns: No Agree to blood products: Yes Comments At time of signature, I have reviewed and agree with nursing past medical, surgical, social and family history unless otherwise noted. Please see nursing chart for further information. There is no relevant family history pertinent to the presenting complaint Exam Narrative: GENERAL: Well-appearing HEAD: Normocephalic, atraumatic. Facial sensation intact. No rash. EYES: Left conjunctival injection, Frequent tearing. No purulent discharge, No eye lid swelling. no apparent abrasion visible. PERRLA, EOMI. Lid eversion shows no FB. ENT: Mucous membranes pink and moist. Mild rhinorrhea. TMs normal bilaterally. Throat normal. Uvula midline. CHEST: Clear to auscultation. HEART: Regular rate and rhythm. SKIN: Warm, dry, no rash. Normal skin turgor. NEURO: No focal deficits. Alert and oriented x3 PSYCH: Normal affect. Course Course Emergency Course: Patient is aware of diagnosis, understands and agrees to treatment plan. Anticipatory guidance given. Patient agrees to follow-up as directed and is aware of reasons to seek care at the emergency department. Portions of this record may have been created with voice recognition software Level of Care: Express Care Visit Vital Signs Vital signs: Vital Signs Temperature 97.8 F 12/13/24 16:46 Pulse Rate 82 12/13/24 16:46 Respiratory Rate 16 12/13/24 16:46 Blood Pressure 147/86 H 12/13/24 16:46 Pulse Oximetry 100 12/13/24 16:46 Temperature 97.8 F 12/13/24 16:46 Pulse Rate 82 12/13/24 16:46 Respiratory Rate 16 12/13/24 16:46 Blood Pressure 147/86 H 12/13/24 16:46 Pulse Oximetry 100 12/13/24 16:46 MDM - Eye Problem MDM Narrative Medical decision making narrative: Pt with left eye pain. Discussed physical exam findings. Pt declined ross lamp exam, will treat with abx and ketoralac. 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 She is aware of s/s to go to the ER. Advised supportive measures and signs/symptoms to go to the ER. Pt is appropriate for outpt treatment and f/u. Differential Diagnosis Differential diagnosis: Likely corneal abrasion, conjunctivitis, acute iritis and other Discharge Plan Discharge Clinical Impression: Acute left eye pain Patient Disposition: Home Condition: Stable Instructions: Antibiotic Form, Corneal Abrasion (ED) Additional Instructions: Avoid touching or rubbing your eye. Use over the counter lubricating eye drops as needed for irritation Use a warm or cool washcloth on your eye for comfort Use eyedrops as directed Practice good handwashing and hygiene to prevent spread of infection Do not wear the contact lenses. Use a new pair after the symptoms are completely resolved. Use new makeup, lashes etc. You may take Tylenol or ibuprofen for pain Follow-up with PCP or pullman car clerk tomorrow Go to the emergency room if you have severe pain or pressure behind your eye, difficulty seeing, or other severe symptoms Patient Language: Bulgarian Prescriptions: New ketorolac 0.5 % drops 1 drp LEFT EYE Q6H PRN (Reason: pain) Qty: 3 0RF ofloxacin 0.3 % drops See Rx Instructions .ROUTE .COMPLEX Qty: 10 0RF Rx Instructions: put 2 drops into left eye every 2hours for 2 days, then 2 drops 4 times a day on days 3-7 No Action albuterol sulfate 90 mcg/actuation HFA aerosol inhaler 1 inh inhalation Q4H PRN (Reason: shortness of breath or wheezing) Qty: 8.5 2RF magnesium 250 mg tablet 250 mg PO DAILY Qty: 1 0RF ascorbic acid (vitamin C) 1,000 mg capsule 1,000 mg PO DAILY Qty: 1 0RF mecobalamin (vitamin B12) 500 mcg tablet,chewable 500 mcg PO DAILY Qty: 1 0RF (DME) prevagen See Rx Instructions .ROUTE .MEDSUPPLY Qty: 1 0RF Patient Comments: daily Rx Instructions: As directed cholecalciferol (vitamin D3) 50 mcg (2,000 unit) capsule 50 mcg PO DAILY fexofenadine 30 mg tablet 60 mg PO DAILY fluticasone propionate 50 mcg/actuation spray,suspension 1 spray intranasal DAILY Rx Instructions: administer into each nostril meclizine 12.5 mg tablet 12.5 mg PO BID Patient Comments: PRN for vertigo rosuvastatin 5 mg tablet 5 mg PO DAILY Qty: 30 0RF Follow-up/Referrals: Dianne Little PA-C [Primary Care Provider, [facility]] Time of Disposition: 17:31
== END 2024-12-13 17:34 | disposition home or self-care (01) ==
PROVIDERS: Emergency Provider Nurse Practitioner Family; PCP Student in an Organized Health Care Education/Training Program
DX: H57.12 Ocular pain, left eye (principal); J45.909 Unspecified asthma, uncomplicated; E55.9 Vitamin D deficiency, unspecified; M48.02 Spinal stenosis, cervical region; Z85.828 Personal history of other malignant neoplasm of skin
CPT/HCPCS: 99213; G0463

== ENCOUNTER 2024-12-28 01:03 | Day surgery (SDC) | payer OTHER, SELFPAY ==
[2024-11-12 14:41] VITALS: BMI 30.2
--- NOTE | 2024-11-24 16:58 | PC.NURSE ---
Pt was interviewed for screening colonoscopy and states she is having some cardiac testing -echo 11/24/24 due to having 2 episodes of chest heaviness and felt like a heavy weight in the center of her chest. Radiated to R-arm and shoulder and up neck on both sides. She states first episode lasted less than 5 minutes with the second lasting much longer- after the 2nd espisode she had a discomfort and did not feel well for several days, both times she states she felt like she could not get enough air. She has noticed a decrease in her activity tolerance along with SOB. She states she has had edema in legs off and on for several years and uses compression hose that generally reduces it, however she has noticed recently the swelling has worsened and sometimes remains when she goes to bed at night. She does state her father had a strong heart history and of cardiac disease. I reviewed this with anesthesia, Dr. Woodall and he wants patient to be cleared cardiac barbosa to limit the risk prior to having the screening colonoscopy with the symptoms she describes. When I spoke with patient I did reschedule her to 12/28/2024 to allow time for patient to be seen and cleared for procedure. This was also sent to Dr. Gonzalez and to PCP Dianne Little PAC
[2024-12-16 15:17] VITALS: BMI 30.1
[2024-12-16 15:21] VITALS: BMI 30.1
--- OUTSIDE RECORDS SUMMARY | 2024-12-28 01:06 | XMS_ITS | Clinical Summary ---
Author Organization [facility] Address [address] [address] Phone Care Team Providers Care Associate Professor Of Medicine Name Role Phone Ray Schwartz MD Primary Care Provider [phone] Medications polyethylene glycol (MIRALAX) Powder Mix the [...] 2010 Zoster Immunization (1 of 2) 2010 Influenza Immunization (#1) 2024 SARS-COV-2 Immunization ( - season) 2024 Respiratory Syncytial Virus (RSV) Immunization (Adult) [...] age to complete this topic Care Teams Associate Professor Of Medicine Relationship Specialty Start Date End Date Ray Schwartz MD [address] [facility] [place] [address] PCP - General Family Medicine 05/14/16
--- OUTSIDE RECORDS SUMMARY | 2024-12-28 01:06 | XMS_ITS | Clinical Summary ---
Author Organization [facility] Address [address] [facility] [place] [address] Care Team Providers Care Die Sinking Machine Operator Name Role Phone Ray Schwartz MD Primary Care Provider [phone] Source Comments [facility],non-owned Affiliates and Associated Physician Practices is amultiple site organization consisting of ambulatory clinics and hospital sitesin [place], [place], [place] and [place]. This disclosure is being madepursuant to the Care Everywhere program and may not contain all information available regarding this patient. 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 Advance Directives * Full Code (Latest Code Status on File) Date Activated Date Inactivated Comments 10/04/2009 1:15 PM 10/07/2009 3:21 AM Care Teams Die Sinking Machine Operator Relationship Specialty Start Date End Date Ray Schwartz MD [address] [place] [address] PCP - General Family Medicine 07/20/13
--- OUTSIDE RECORDS SUMMARY | 2024-12-28 01:06 | XMS_ITS | Clinical Summary ---
Author Organization [facility] Address [address] [place] [address] Care Team Providers Care Harpsichord Maker Name Role Phone Genevieve Matos MD Primary Care Provider Encounters Date Type Department Care Team Description 10/31/2024 10:57 AM CDT - 10/31/2024 4:52 PM CDT Emergency [facility] Emergency Department [address] [place] [address] Sindy Shay MD Chest pain, unspecified type (Primary Dx) Discharge Disposition: Discharge to home or self care from Last 3 Months Social History Tobacco Use Types Packs/Day Years Used Date Smoking Tobacco: Never Assessed Comments Unknown Sex and Gender Information Value Date Recorded Sex Assigned at Not on file 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 Trop T hs delta 2 ng/L [facility] Trop T hs interp Insignificant [facility] Blood 10/31/2024 3:41 PM CDT 10/31/2024 3:45 PM CDT Sindy Shay MD LAB BLOOD ORDERABLES Final Resu lt Performing Organization Address [facility] Co de Phone Number HARVEYCHANEL THOMAS [address] [place] [address] * D-dimer, quantitative (10/31/2024 2:58 PM CDT) [...] ORDERABLES Final Resu lt Performing Organization Address [facility]/ZIP Co de Phone Number JOHN WILLIAM [address] [facility] [place] [address] * Troponin T high-sensitivity 2-hour (10/31/2024 1:22 PM CDT) Trop T hs 9 <=14 ng/L Comment: Interpretive Data For further hscTnT resources including the diagnostic algorithm and an aid in interpretation, copy and paste this link: https://[email or web address]/show/[email or web address] Current Interpretive Data last revised 2020. Trop T hs delta 1 ng/L [facility] Trop T hs interp Insignificant [facility] Blood 10/31/2024 1:22 PM CDT 10/31/2024 1:22 PM CDT Sindy Shay MD LAB BLOOD ORDERABLES Final Resu lt Performing Organization Address City/[facility]/ZIP Co de Phone Number JOHN THOMAS [address] [place] [address] * Troponin T high-sensitivity series (baseline, 2hr, 4hr, 6hr) (10/31/2024 11:29 AM CDT) Trop T hs 8 <=14 ng/L Comment: Interpretive Data For further hscTnT resources including the diagnostic algorithm and an aid in interpretation, copy and paste this link: [email or web address]/[email or web address] Current Interpretive Data last revised 2020. Blood 10/31/2024 11:2 9 AM CDT 10/31/2024 11:29 AM CDT Sindy Shay MD LAB BLOOD ORDERABLES Final Resu lt JOHN THOMAS [address] [place] [address] * eGFR (10/31/2024 11:29 AM CDT) eGFR [...] MD LAB BLOOD ORDERABLES Final Resu lt [facility] [address] Department [place] [address] * Differential, auto (10/31/2024 11:29 AM CDT) Neutrophil abs 4.33 1.50 - 6.50 K/cumm Imm gran abs 0.06 0.00 - 0.10 K/cumm [facility] Lymphocyte abs 1.88 0.80 - 3.30 K/cumm [facility] Monocyte abs 0.69 0.20 - 0.80 K/cumm [facility] Eosinophil abs 0.23 0.00 - 0.50 K/cumm [facility] Basophil abs 0.09 0.00 - 0.10 K/cumm [facility] Neutrophil pct 59.5 % [facility] Comment: Interpretive Data Percent cell count reference ranges are not reported, since discordance with absolute values may lead to misinterpretation of CBC data. Current Interpretive Data was last revised on 2017. Imm gran pct 0.8 % [facility] Comment: Interpretive Data Percent cell count reference [...] MD LAB BLOOD ORDERABLES Final Resu lt [facility] [address] Department [place] [address] * CBC with auto differential (10/31/2024 11:29 AM CDT) WBC 7.28 3.80 - 9.90 K/cumm Hgb 14.4 11.9 - 15.5 g/dL [facility] Hct 44.0 35.6 - 45.5 % [facility] Plt 216 150 - 400 K/cumm [facility] MPV 10.3 9.1 - 12.3 fL [facility] RBC 4.85 3.90 - 5.20 M/cumm [facility] MCV 90.7 81.3 - 96.4 fL [facility] MCH 29.7 27.1 - 33.3 pg CERNER [...] LAB BLOOD ORDERABLES Final Resu lt [facility] [address] Department [place] [address] * Comprehensive metabolic panel (10/31/2024 [...] BLOOD ORDERABLES Final Resu lt JOHN THOMAS [address] [place] [address] * XR Chest 1 Vw Portable (If [...] CDT) 10/31/2024 11:0 9 AM CDT Narrative [facility] - 10/31/2024 1:18 PM CDT Vent Rate: 70 bpm RR Interval: 855 msec IN Interval: 162 msec QRS Duration: 105 msec QT Interval: 400 msec QTC Interval: 420 msec P-R-T [place]: 53 - 23 - 50 degrees IMPRESSION: SINUS RHYTHM NORMAL ECG Electronically Signed By: Rivera Conrad MD us Sindy Shay MD ECG ORDERABLES Final Result [facility] from Last 3 Months Insurance CIG[employer] CIGNA Care Teams Harpsichord Maker Relationship Specialty Start Date End Date Genevieve Matos MD [address] [facility] [address] [address] PCP - General Family Medicine 10/31/24
[2024-12-28 07:23] VITALS: BP 104/66; PULSE 75; RESP 20; TEMP 36.7; O2SAT 97; BMI 29.0
[2024-12-28] MEDS: LACTATED RINGERS 1,000 ML 150 ML IV CONT (07:34)
--- NOTE | 2024-12-28 07:39 | WPDANESEPPF ---
Anes - Initial Pre Proc Eval Procedure: Operation Date: 12/28/24 08:30 Proposed Procedures p Screening Colonoscopy - Toribio Gonzalez DO Date/Time: 12/28/24 07:39 Surgeon: Toribio Gonzalez DO Pre Op Diagnosis: Neoplasm screening Patient Data Age: 64 Gender: F Height: 1.6 m Weight: 74.5 kg Last Vital Signs Temp 98.1 F 12/28/24 07:23 Pulse 75 12/28/24 07:23 Resp 20 12/28/24 07:23 BP 104/66 12/28/24 07:23 Pulse Ox 97 12/28/24 07:23 O2 Del Method Room Air 12/28/24 07:23 Allergies Allergy/AdvReac Type Severity Reaction Status Date / Time Penicillins Allergy Unknown Unknown Verified 12/28/24 07:21 propoxyphene Allergy Unknown UNKNOWN Verified 12/28/24 07:21 hydrocodone AdvReac Unknown Nausea and Verified 12/28/24 07:21 Vomiting Home Medications ?Medication ?Instructions ?Recorded ?Confirmed ?Type cholecalciferol (vitamin D3) 50 50 mcg PO DAILY 04/11/20 12/28/24 History mcg (2,000 unit) capsule fexofenadine 30 mg tablet 60 mg PO DAILY 04/11/20 12/28/24 History fluticasone propionate 50 1 spray intranasal DAILY 05/11/20 12/28/24 History mcg/actuation nasal spray,suspension meclizine 12.5 mg tablet 12.5 mg PO BID 05/11/20 12/23/24 History albuterol sulfate 90 mcg/actuation 1 inh inhalation Q4H PRN shortness 08/27/24 12/23/24 Rx aerosol inhaler of breath or wheezing #8.5 grams ascorbic acid (vitamin C) 1,000 mg 1,000 mg PO DAILY #1 cap 08/27/24 12/28/24 Rx capsule magnesium 250 mg tablet 250 mg PO DAILY #1 tablet 08/27/24 12/28/24 Rx mecobalamin (vitamin B12) 500 mcg 500 mcg PO DAILY #1 tablet 08/27/24 12/28/24 Rx chewable tablet prevagen #1 ea 08/27/24 12/23/24 Rx rosuvastatin 5 mg tablet 5 mg PO DAILY #30 tabs 10/29/24 12/28/24 Rx Patient hx anesthesia problems: none Family hx anesthesia problems: none Results Review: All pre-operative results and documents have been reviewed as part of the pre-operative evaluation. [facility] Past Medical History Medical History Cervical stenosis of spinal canal Spinal stenosis Memory deficit Hoarseness Meningioma Vitamin D deficiency Concussion Cancer of the skin, basal cell Sleep apnea Tinnitus Asthma Surgical History Surgical History History of delivery 1979 and 1981 H/O: hysterectomy 2015 H/O brain surgery meningioma removed 2009 History of microdiscectomy (~04/2003) L5-S1 H/O basal cell carcinoma excision (~05/11/14) left upper back Family History Family History Father Family history of premature coronary heart disease Family history of glaucoma Family history of cardiovascular disease Family history of cardiac disorder Family history of dementia Family history of coronary artery disease Alzheimer's dementia Mother Hypertension Carcinoma of colon Social History Social History Smoking status: Never smoker Second hand tobacco smoke exposure: No Alcohol intake: current Alcohol use details: occasionally Substance use: never Substance use type: does not use Lack of Transportation: No Lack of Food: Never True Current Housing: I Have Housing Concerned About Future Housing: No Difficulty Paying Gas/Electric Bills: No Difficulty Paying for Meds: No Currently Unemployed: No Difficulty w/ Childcare or Family Care: No Living arrangements: with family Occupation/Education: occupation Gender identity (if verbalized by the patient): Female Spiritual care concerns: No Agree to blood products: Yes Anes - Eval Final PreProcedure Day of Procedure 12/28/24 07:39 Patient weight: overweight Lungs: normal air movement Airway: Mallampati scale class II Neurological: alert and oriented Last oral intake: >/= 8 hours ASA classification: II Emergent: no Anesthetic plan: proceed Anesthesia type and monitoring: general GIVS and standard monitoring Results Review: All pre-operative results and documents have been reviewed as part of the pre-operative evaluation. BMI 29, Pt had stress test 11/2024 nml, no ischemia, nml LVEF. Informed Consent: The patient's anesthetic plan and its attendant risks and benefits were discussed with the patient/family/POA. Questions were solicited and answers provided to the satisfaction of the patient/family/POA.
--- NOTE | 2024-12-28 08:40 | PM.IMHP ---
H&P: HPI History of Present Illness Date/Time: 12/28/24 08:40 Chief Complaint: Family history of colon cancer Narrative: This is a 64-year-old woman who presents for colonoscopy. Her last colonoscopy was 6 years ago. Her mom was recently diagnosed with colon cancer. She denies any hematochezia or melena. Review of Systems Review of Systems: All systems reviewed & are unremarkable except as noted in HPI and below Constitutional: Constitutional: Denies chills, Denies fever(s), Denies headache(s) and Denies weight loss Eyes: Eyes: Denies change in vision ENT: Denies dizziness, Denies headache(s), Denies neck mass and Denies throat swelling Cardiovascular: Cardiovascular: Denies chest pain, Denies lightheadedness and Denies dyspnea Respiratory: Respiratory: Denies cough, Denies dyspnea and Denies wheezing Gastrointestinal: Gastrointestinal: Denies abdominal pain, Denies change in bowel habits, Denies nausea and Denies vomiting Genitourinary: Genitourinary: Denies hematuria and Denies dysuria Musculoskeletal: Musculoskeletal: Reports as per HPI Integumentary/Breasts: Skin/Breast: Reports as per HPI Neurologic: Denies dizziness and Denies headache(s) Allergic/Immunologic: Allergic/Immunologic: Denies throat swelling and Denies wheezing PMF Past Medical History Medical History Cervical stenosis of spinal canal Spinal stenosis Memory deficit Hoarseness Meningioma Vitamin D deficiency Concussion Cancer of the skin, basal cell Sleep apnea Tinnitus Asthma Surgical History Surgical History History of delivery 1979 and 1981 H/O: hysterectomy 2015 H/O brain surgery meningioma removed 2009 History of microdiscectomy (~04/2003) L5-S1 H/O basal cell carcinoma excision (~05/11/14) left upper back Family History Family History Father Family history of premature coronary heart disease Family history of glaucoma Family history of cardiovascular disease Family history of cardiac disorder Family history of dementia Family history of coronary artery disease Alzheimer's dementia Mother Hypertension Carcinoma of colon Social History Social History (Reviewed 12/28/24 @ 07:39 by DEANGELO Liao Smoking status: Never smoker Second hand tobacco smoke exposure: No Alcohol intake: current Alcohol use details: occasionally Substance use: never Substance use type: does not use Lack of Transportation: No Lack of Food: Never True Current Housing: I Have Housing Concerned About Future Housing: No Difficulty Paying Gas/Electric Bills: No Difficulty Paying for Meds: No Currently Unemployed: No Difficulty w/ Childcare or Family Care: No Living arrangements: with family Occupation/Education: occupation Gender identity (if verbalized by the patient): Female Spiritual care concerns: No Agree to blood products: Yes Meds Home Medications and Allergies Home Medications ?Medication ?Instructions ?Recorded ?Confirmed ?Type cholecalciferol (vitamin D3) 50 50 mcg PO DAILY 04/11/20 12/28/24 History mcg (2,000 unit) capsule fexofenadine 30 mg tablet 60 mg PO DAILY 04/11/20 12/28/24 History fluticasone propionate 50 1 spray intranasal DAILY 05/11/20 12/28/24 History mcg/actuation nasal spray,suspension meclizine 12.5 mg tablet 12.5 mg PO BID 05/11/20 12/23/24 History albuterol sulfate 90 mcg/actuation 1 inh inhalation Q4H PRN shortness 08/27/24 12/23/24 Rx aerosol inhaler of breath or wheezing #8.5 grams ascorbic acid (vitamin C) 1,000 mg 1,000 mg PO DAILY #1 cap 08/27/24 12/28/24 Rx capsule magnesium 250 mg tablet 250 mg PO DAILY #1 tablet 08/27/24 12/28/24 Rx mecobalamin (vitamin B12) 500 mcg 500 mcg PO DAILY #1 tablet 08/27/24 12/28/24 Rx chewable tablet prevagen #1 ea 08/27/24 12/23/24 Rx rosuvastatin 5 mg tablet 5 mg PO DAILY #30 tabs 10/29/24 12/28/24 Rx Allergies Allergy/AdvReac Type Severity Reaction Status Date / Time Penicillins Allergy Unknown Unknown Verified 12/28/24 07:21 propoxyphene Allergy Unknown UNKNOWN Verified 12/28/24 07:21 hydrocodone AdvReac Unknown Nausea and Verified 12/28/24 07:21 Vomiting Vital Signs Vital Signs - 24 hr 12/28/24 07:23 Temperature 98.1 F Pulse Rate 75 Respiratory Rate 20 Blood Pressure 104/66 Pulse Oximetry 97 Oxygen Delivery Room Air Exam Const: General: no acute distress and alert Orientation/consciousness: patient oriented x3 HENMT: Head: normocephalic and atraumatic Ears: hearing grossly normal bilaterally Face/Nose/Sinus: Normal nares present Mouth: Yes Normal oral and palatal mucosa present Eyes: Periorbital: periorbital findings normal Sclera: sclerae normal EOM: EOMs intact bilaterally Neck: Neck: normal visual inspection, no lymphadenopathy and trachea midline Chest: Chest palpation & inspection: normal inspection of the chest Resp: Effort & Inspection: normal respiratory effort Auscultation: clear to auscultation bilaterally Cardio: Jugular venous distension: no JVD Rate: regular rate Rhythm: regular rhythm Heart sounds: S1 normal heart sound present and S2 normal heart sound present Peripheral pulses: Peripheral pulses 2+ throughout GI: Inspection: normal to inspection GI Palp: Yes Soft to palpation, No Tenderness to palpation present (GI), No Guarding due to palpation present (GI) and No Rebound tenderness present Percussion: Yes normal to percussion Auscultation: normal bowel sounds : General: Yes no CVA tenderness Back/Spine/Pelvis: Back: no CVA tenderness Neuro: General: patient oriented x3, no focal motor deficits and CN's II-XI intact bilaterally Cognition (Neuro): normal cognition Speech: normal speech Motor exam (neuro): 5/5 motor strength present throughout Extrem: General: capillary refill normal and no clubbing, cyanosis or edema Assessment and Plan Assessment and plan (1) Family history of colon cancer: Code(s): Z80.0 - Family history of malignant neoplasm of digestive organs Status: Acute Assessment and Plan: I have recommended colonoscopy. I have discussed the procedure, risks, benefits, and alternatives. Questions were answered. Patient is agreeable to proceed.
--- NOTE | 2024-12-28 09:18 | S_PTH ---
PATIENT: Reva Leone LOC: [facility] U#:[id number] AGE/SX: 64/F ROOM: RE12/28/[address]: Toribio Gonzalez DO : 1960 BED: DIS: 12/28/2024 SPEC #: [id number] RECD: 12/28/24 10:08 STATUS: CHARLETTE REAna Luisa #: [id number] MONI: 12/28/24 09:[address]: Toribio Gonzalez DEPT: [facility] Surgical RECD BY: Tori Green ENTERED: 12/28/24 10:08 SP TYPE: Surgical OTHR DR: Dianne Little PA-C Tissues: A - Colon Polypectomy Procedures: Hematoxylin and Eosin Stain Gross and Microscopic Level 4
[2024-12-28 09:21] VITALS: BP 94/49; PULSE 70; RESP 19; O2SAT 100
[2024-12-28 09:31] VITALS: BP 99/50; PULSE 63; RESP 14; O2SAT 100
[2024-12-28 09:41] VITALS: BP 105/63; PULSE 64; RESP 21; O2SAT 100
== END 2024-12-28 09:53 | disposition home or self-care (01) ==
PROVIDERS: PCP Student in an Organized Health Care Education/Training Program; Visit Provider Surgery
PROC: 0DJD8ZZ Inspection of Lower Intestinal Tract, Via Natural or Artificial Opening Endoscopic (ICD-10-PCS; CPT 45378; principal; 2024-12-28 08:30)
DX: Z12.11 Encounter for screening for malignant neoplasm of colon (principal); D12.0 Benign neoplasm of cecum; K57.30 Diverticulosis of large intestine without perforation or abscess without bleeding; E55.9 Vitamin D deficiency, unspecified; J45.909 Unspecified asthma, uncomplicated; G47.30 Sleep apnea, unspecified; M48.02 Spinal stenosis, cervical region; I69.911 Memory deficit following unspecified cerebrovascular disease; Z79.51 Long term (current) use of inhaled steroids; Z98.890 Other specified postprocedural states; Z98.1 Arthrodesis status; Z85.828 Personal history of other malignant neoplasm of skin; Z80.0 Family history of malignant neoplasm of digestive organs; Z82.49 Family history of ischemic heart disease and other diseases of the circulatory system
CPT/HCPCS: 45385; 88305; J1100; J2003; J2405; J2704; J7120

== ENCOUNTER 2025-01-18 13:46 | Outpatient (CLI) | payer OTHER, SELFPAY ==
--- NOTE | ~2025-01-18 | MM_ITS ---
EXAMINATION: MM screening edgar BI w jake HISTORY: Screening TECHNIQUE: Craniocaudal and mediolateral oblique 3-D tomosynthesis images were obtained and synthetic 2-D images were generated. CAD analysis was submitted and interpreted. COMPARISON: Comparison to multiple prior studies sequentially, with oldest reviewed study dated 05/11/2015 Not dense: There are scattered areas of fibroglandular density.. BREAST PARENCHYMAL COMPOSITION: There are scattered areas of fibroglandular density. FINDINGS: There is no evidence of suspicious mass, calcification, or architectural distortion to suggest malignancy in either breast. There has been no suspicious interval change. IMPRESSION: 1. No mammographic evidence of malignancy. 2. Recommend routine screening mammography in one year. BI-RADS Category 1: Negative Reviewed, dictated and finalized at location B. UTER TRAINING SPECIALIST
--- OUTSIDE RECORDS SUMMARY | 2025-01-18 13:56 | XMS_ITS | Clinical Summary ---
Author Organization [facility] Address [address] [place] [id number] Care Team Providers Care Sumatra Opener Name Role Phone Genevieve Matos MD Primary Care Provider [phone] Encounters Date Type Department Care Team Description 10/31/2024 10:57 AM CDT - 10/31/2024 4:52 PM CDT Emergency [facility] Emergency Department [address] [place] [id number] Sindy Shay MD Chest pain, unspecified type (Primary Dx) Discharge Disposition: Discharge to home or self care from Last 3 Months Social History Tobacco Use Types Packs/Day Years Used Date Smoking Tobacco: Never Assessed Comments Unknown Sex and Gender Information Value Date Recorded Sex Assigned at Not on file 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 Blood 10/31/2024 3:41 PM CDT 10/31/2024 3:45 PM CDT Sindy Shay MD LAB BLOOD ORDERABLES Final Resu lt Performing Organization Address [facility] Co de Phone Number HARVEYCHANEL THOMAS [address] [place] [address] * D-dimer, quantitative (10/31/2024 2:58 PM CDT) [...] ORDERABLES Final Resu lt Performing Organization Address [facility]/ZIP Co de Phone Number JOHN WILLIAM [address] [facility] [place] [address] * Troponin T high-sensitivity 2-hour (10/31/2024 1:22 PM CDT) Trop T hs 9 <=14 ng/L Comment: Interpretive Data For further hscTnT resources including the diagnostic algorithm and an aid in interpretation, copy and paste this link: [email or web address] Current Interpretive Data last revised 2020. Trop T hs delta 1 ng/L [facility] Trop T hs interp Insignificant [facility] Blood 10/31/2024 1:22 PM CDT 10/31/2024 1:22 PM CDT Sindy Shay MD LAB BLOOD ORDERABLES Final Resu lt Performing Organization Address City/[facility]/ZIP Co de Phone Number JOHN THOMAS [address] [place] [address] * Troponin T high-sensitivity series (baseline, 2hr, 4hr, 6hr) (10/31/2024 11:29 AM CDT) Trop T hs 8 <=14 ng/L Comment: Interpretive Data For further hscTnT resources including the diagnostic algorithm and an aid in interpretation, copy and paste this link: [email or web address] Current Interpretive Data last revised 2020. Blood 10/31/2024 11:2 9 AM CDT 10/31/2024 11:29 AM CDT Sindy Shay MD LAB BLOOD ORDERABLES Final Resu lt JOHN THOMAS [address] [place] [address] * eGFR (10/31/2024 11:29 AM CDT) eGFR [...] LAB BLOOD ORDERABLES Final Resu lt [facility] [address] [place] [address] * Differential, auto (10/31/2024 11:29 AM CDT) Neutrophil abs 4.33 1.50 - 6.50 K/cumm Imm gran abs 0.06 0.00 - 0.10 K/cumm [facility] Lymphocyte abs 1.88 0.80 - 3.30 K/cumm [facility] Monocyte abs 0.69 0.20 - 0.80 K/cumm [facility] Eosinophil abs 0.23 0.00 - 0.50 K/cumm [facility] Basophil abs 0.09 0.00 - 0.10 K/cumm [facility] Neutrophil pct 59.5 % [facility] Comment: Interpretive Data Percent cell count reference ranges are not reported, since discordance with absolute values may lead to misinterpretation of CBC data. Current Interpretive Data was last revised on 2017. Imm gran pct 0.8 % [facility] Comment: Interpretive Data Percent cell count [...] LAB BLOOD ORDERABLES Final Resu lt [facility] [address] [place] [address] * CBC with auto differential (10/31/2024 11:29 AM CDT) WBC 7.28 3.80 - 9.90 K/cumm Hgb 14.4 11.9 - 15.5 g/dL [facility] Hct 44.0 35.6 - 45.5 % [facility] Plt 216 150 - 400 K/cumm [facility] MPV 10.3 9.1 - 12.3 fL [facility] RBC 4.85 3.90 - 5.20 M/cumm [facility] MCV 90.7 81.3 - 96.4 fL [facility] MCH 29.7 27.1 - 33.3 pg [...] LAB BLOOD ORDERABLES Final Resu lt CERNER [address] [place] [address] * Comprehensive metabolic panel (10/31/2024 [...] BLOOD ORDERABLES Final Resu lt JOHN THOMAS [address] [place] [address] * XR Chest 1 Vw Portable (If [...] CDT) 10/31/2024 11:[address] [facility] - 10/31/2024 1:18 PM CDT Vent Rate: 70 bpm RR Interval: 855 msec NC Interval: 162 msec QRS Duration: 105 msec QT Interval: 400 msec QTC Interval: 420 msec P-R-T [place]: 53 - 23 - 50 degrees IMPRESSION: SINUS RHYTHM NORMAL ECG Electronically Signed By: Rivera Conrad MD us Sindy Shay MD ECG ORDERABLES Final Result [facility] from Last 3 Months Insurance CIGNA CIGNA Care Teams Sumatra Opener Relationship Specialty Start Date End Date Genevieve Matos MD PCP - General Family Medicine 10/31/24
--- OUTSIDE RECORDS SUMMARY | 2025-01-18 13:56 | XMS_ITS | Clinical Summary ---
Author Organization [facility] Address [address] [address] Phone Care Team Providers Care Cement Mason Apprentice Name Role Phone Ray Schwartz MD Primary Care Provider [phone] Medications polyethylene glycol (MIRALAX) Powder Mix the [...] age to complete this topic Care Teams Cement Mason Apprentice Relationship Specialty Start Date End Date Ray Schwartz MD [address] [place] [address] PCP - General Family Medicine 05/14/16
--- OUTSIDE RECORDS SUMMARY | 2025-01-18 13:56 | XMS_ITS | Clinical Summary ---
Author Organization [facility] Address [address] [facility] [place] [address] Care Team Providers Care Eligibility Examiner Name Role Phone Ray Schwartz MD Primary Care Provider [phone] Source Comments [facility] Affiliates and Associated Physician Practices is amultiple site organization consisting of ambulatory clinics and hospital sitesin [place], [place], [place] and [place]. This disclosure is being madepursuant to the Care Everywhere program and may not contain all information available regarding this patient. 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 Not on file Not [...] 11/19/2018 0, 10/05/2009, 10/04/2009, Additional history exists Respiratory Syncytial Virus (RSV) Vaccine Pt: or over 60 yrs (1 - Risk 60-74 years 1-dose series) 2020 DEPRESSION SCREENING 03/11/2024 COVID-19 VACCINE ( - season) 2024 INFLUENZA VACCINE (#1) 2024 12/15/2016 HEPATITIS B VACCINE Aged Out No longe [...] POINT OF CARE ORDERABL ES Final Result [facility] [address] [place] [address] from Last 3 Months or Most Recently Relevant to Health Maintenance Insurance [facility] SELF PAY NO INSURANCE Member Subscriber Plan / Payer (Ef fective for All Dates) Name:Reva Perez Member ID:Not on file Relation to Subscriber:Not on file Name:CHRISREVA Khari Subscriber ID:Not on file (Home) Address: [address] [place] [address] Payer ID:Not on file Group ID:Not on file Type:Self Pay Address: [place], [place] CIG[place] [facility] Address: [address] [place] [address] Advance Directives * Full Code (Latest Code Status on File) Date Activated Date Inactivated Comments 10/04/2009 1:15 PM 10/07/2009 3:21 AM Care Teams Eligibility Examiner Relationship Specialty Start Date End Date Ray [place] [address] PCP - General Family Medicine 07/20/13
== END 2025-01-18 13:47 | disposition home or self-care (01) ==
LOC: ANHFOHIMG 13:47
PROVIDERS: PCP Student in an Organized Health Care Education/Training Program; Visit Provider Family Medicine
DX: Z12.31 Encounter for screening mammogram for malignant neoplasm of breast (principal)
CPT/HCPCS: 77063; 77067

== ENCOUNTER 2025-02-15 08:20 | Outpatient (CLI) | payer OTHER, SELFPAY ==
--- NOTE | ~2025-02-15 | DEXA_ITS ---
Bone Density Report Name: RAUL PEREZ Age: 64 Sex: Female Ethnicity: White Date of : 1960 Indication: postmenopausal; screening for osteoporosis; asthma or emphysema; hysterectomy; Referring Provider: HOLLY NIX Study: Bone densitometry was performed. Exam Date: February 15, 2025 Accession number: [id number] Bone Density: Region BMD T-score Z-score Classification AP Spine(L1-L4) 1.051 0.0 1.8 Normal Femoral Neck (Left) 0.709 -1.3 0.2 Osteopenia Total Hip (Left) 0.982 0.3 1.5 Normal Femoral Neck (Right) 0.730 -1.1 0.4 Osteopenia Total Hip (Right) 0.997 0.5 1.6 Normal Total Hip Mean 0.989 0.4 1.6 Normal World Health Organization criteria for BMD impression classify patients as: Normal (T-score at or above -1.0), Osteopenia (T-score between -1.0 and -2.5), or Osteoporosis (T-score at or below -2.5). 10-year Fracture Risk(1): Major Osteoporotic Fracture 7.9% Hip Fracture 0.6% Reported Risk Factors: [place] (), Neck BMD=0.709, BMI=31.0 (1) FRAX(R) Version 3.08. Fracture probability calculated for an untreated patient. Fracture probability may be lower if the patient has received treatment. Clinical Information Provided by Patient: Has used the following medications: Vitamin D Has the following medical conditions: Asthma or Emphysema, Hysterectomy Patient maximum height was 63.0 Menopause Age: 55 No regular weight bearing exercise Does not regularly consume dairy products Drinks caffeinated beverages Onset of menses at age 13 Number of children 2 Impression: The patient has low bone mass, based on the Left Femoral Neck T-score. The patient has an estimated ten-year risk of hip fracture of 0.6% and an estimated ten-year risk of major fracture of 7.9%, based on the WHO FRAX algorithm. Discussion: BONE DENSITY IS LOW AT ONE OR MORE SKELETAL SITES. This patient's lowest T-score is low at one or more skeletal sites. It meets the World Health Organization's (WHO) criteria for ?low bone mass? (T-score between -1.0 and -2.5). The patient's 10-year risk of fracture as calculated by FRAX is less than the threshold where pharmacological therapy is recommended by the National Osteoporosis Foundation (NOF). However, all treatment decisions require clinical judgment and consideration of individual patient factors, including patient preferences, comorbidities, previous drug use, risk factors not captured in the FRAX model (e.g., frailty, falls, vitamin D deficiency, increased bone turnover, interval significant decline in bone density) and possible under or overestimation of fracture risk by FRAX. The patient should follow a healthful lifestyle (good nutrition with adequate calcium and vitamin D, and appropriate weight-bearing exercise). Follow-Up: Consider repeating this study in 2 to 3 years to reassess this patient's status, or sooner if there is some new clinical indication. Reported by: BRIONNA on 02/15/2025 8:59:00 AM. Reviewed, dictated and finalized at location A.
== END 2025-02-15 08:21 | disposition home or self-care (01) ==
LOC: ANHFOHIMG 08:21
PROVIDERS: PCP Family Medicine; Visit Provider Student in an Organized Health Care Education/Training Program
DX: M85.89 Other specified disorders of bone density and structure, multiple sites (principal); Z78.0 Asymptomatic menopausal state; Z13.820 Encounter for screening for osteoporosis
CPT/HCPCS: 77080